=== PATIENT | female | born 1990 | race Caucasian/White ===

== ENCOUNTER 2020-08-05 08:10 | Emergency (ER) | payer OTHER, SELFPAY ==
[2020-08-05 08:23] VITALS: BP 104/52; PULSE 84; RESP 17; TEMP 36.6; BMI 22.1
[2020-08-05] MEDS: ondansetron HCL 4 MG/2 ML VIAL IVPUSH (08:40)
[2020-08-05] MEDS: 0.9 % Sodium Chloride 1,000 ML 999 ML IVCONT (08:41)
[2020-08-05 08:42] LABS: MANUAL DIFF FLAG NO
[2020-08-05 08:44] LABS: Basophils Percent Auto 0.3 % (0-2); Eosinophils Percent Auto 0.5 % (0-4); Hematocrit 41.2 % (37-47); Hemoglobin 14.2 g/dl (12.0-16.0); Imm Gran Abs Auto 0.02 X10*3/uL (0.00-0.03); Imm Gran Pct Auto 0.2 % (0.0-0.4); Lymphocytes Absolute Auto 1.5 X10*3/uL (1.2-4.9); Lymphocytes Percent Auto 17.7 % (20-40); Mean Corpuscular HGB Conc 34.5 g/dl (31.0-35.0); Mean Corpuscular Hemoglobin 31.8 pg (27.0-33.0); Mean Corpuscular Volume 92.4 fL (80-98); Mean Platelet Volume 9.8 fL (9.4-12.3); Monocytes Absolute Auto 0.4 X10*3/uL (0.1-1.2); Monocytes Percent Auto 4.4 % (2-11); Neutrophils Absolute Auto 6.6 X10*3/uL (2.0-8.3); Neutrophils Percent Auto 76.9 % (45-73); Platelet Count 274 X10*3/uL (160-400); Red Blood Count 4.46 X10*6/uL (4.20-5.50); Red Cell Distribution Width 10.8 % (11.0-16.0); White Blood Count 8.6 X10*3/uL (4.8-10.8)
--- NOTE | 2020-08-05 09:10 | ED_ITS ---
HPI - Nausea/Vomiting/Diarrhea General Chief complaint: Abdominal Pain <GRETCHEN Nixon Last Filed: 08/05/20 10:28> Stated complaint: ,vomiting <GRETCHEN Nixon - Last Filed: 08/05/20 10:28> Time Seen by Provider: 08/05/20 08:24 <GRETCHEN Nixon Last Filed: 08/05/20 10:28> Source: patient <GRETCHEN Nixon Last Filed: 08/05/20 10:28> Mode of arrival: ambulatory <GRETCHEN Nixon Last Filed: 08/05/20 10:28> Limitations: no limitations <GRETCHEN Nixon Last Filed: 08/05/20 10:28> History of Present Illness HPI Narrative: 29 y/o female presenting with intractable nausea and vomiting for the last 6 days. She is 6 weeks . She reports similar experience with her 1st in [place]; she states she was in bed and felt sick for 3 whole months. She reports abdominal soreness associated with vomiting. She denies fever, diarrhea, vaginal discharge, vaginal bleeding, lower abdominal cramping. She reports headache behind both eyes and thinks she is dehydrated. <GRETCHEN Nixon Last Filed: 08/05/20 10:28> MD elicited complaint: nausea and vomiting <GRETCHEN Nixon - Last Filed: 08/05/20 10:28> Pertinent past history: other () <GRETCHEN Nixon Last Filed: 08/05/20 10:28> Onset (ago): day(s) (6) <GRETCHEN Nixon - Last Filed: 08/05/20 10:28> Description of vomiting: food contents and watery <GRETCHEN Nixon Last Filed: 08/05/20 10:28> Associated nausea: Yes <GRETCHEN Nixon Last Filed: 08/05/20 10:28> Associated abdominal pain: Yes <GRETCHEN Nixon Last Filed: 08/05/20 10:28> Location of pain: diffuse (only when vomiting, describes it as soreness) <GRETCHEN Nixon Last Filed: 08/05/20 10:28> Pain consistency: intermittent <GRETCHEN Nixon Last Filed: 08/05/20 10:28> Severity: moderate <GRETCHEN Nixon Last Filed: 08/05/20 10:28> Related Data Home medications: Previous Rx's Medication Instructions Recorded ondansetron 4 mg PO Q8H PRN 3 Days #14 tab 08/05/20 <GRETCHEN Nixon Last Filed: 08/05/20 10:28> Allergies/Adverse reactions: Allergies Allergy/AdvReac Type Severity Reaction Status Date / Time No Known Allergies Allergy Verified 08/05/20 08:33 [No Known Allergies*] <GRETCHEN Nixon Last Filed: 08/05/20 10:28> Review of Systems Review of Systems: Constitutional: No Fever, No Chills ENT/Mouth: No sore throat, No Rhinorrhea, No Swallowing Difficulty Eyes: No Eye Pain, No Swelling, No Redness Cardiovascular: No Chest Pain, No SOB, No Orthopnea, No Edema Respiratory: No Cough, No Sputum, No Wheezing, No dyspnea Gastrointestinal: + Nausea, + Vomiting, No Diarrhea, + abdominal Pain, No Hematemesis Genitourinary: No Dysuria, No Urinary Frequency, No Hematuria, No vaginal bleeding Musculoskeletal: No joint pain, No Myalgias Skin: No Skin Lesions, No rash Neuro: + Weakness, No Numbness, No Dizziness, + Headache Psych: + Anxiety/Panic, No Depression Heme/Lymph: No Bruising, No Lymphadenopathy Endocrine: No Polyuria, No Polydipsia <GRETCHEN Nixon Last Filed: 07/15 10:28> Gastrointestinal: Gastrointestinal: Reports nausea <GRETCHEN Nixon Last Filed: 08/05/20 10:28> [facility] Past Medical History Attestation statement: The following information was validated with the patient. <GRETCHEN Nixon Last Filed: 08/05/20 10:28> : 2 <GRETCHEN Nixon Last Filed: 08/05/20 10:28> Para: 1 <GRETCHEN Nixon Last Filed: 08/05/20 10:28> Hx Last Menstrual Period: LMP sometime in May <GRETCHEN Nixon - Last Filed: 08/05/20 10:28> Social History Social History: Social History Advance Directives: No Advance Directives Information Provided: No <GRETCHEN Nixon - Last Filed: 08/05/20 10:28> Physical Exam Vital Signs: Vital Signs: Last Vital Signs Temp 98 F 08/05/20 08:23 Pulse 72 08/05/20 09:55 Resp 16 08/05/20 09:55 BP 107/65 08/05/20 09:55 Pulse Ox 99 08/05/20 09:55 Body Mass Index 22.1 Appearance: Alert. Oriented X3. No acute distress. Eyes: Pupils equal, round and reactive to light. ENT: Pharynx normal. Neck: Normal inspection. Neck supple. CVS: Normal heart rate and rhythm. Pulses normal. Respiratory: No respiratory distress. Breath sounds normal. Abdomen: Soft and nontender. +BS x4 Skin: Skin warm and dry. Normal skin color. Normal skin turgor. No rashes. Extremities: No lower extremity edema. Neuro: Oriented X 3. No motor deficit. No sensory deficit. <GRETCHEN Nixon - Last Filed: 08/05/20 10:28> Vital Signs: Last Vital Signs Temp 98 F 08/05/20 08:23 Pulse 72 08/05/20 09:55 Resp 16 08/05/20 09:55 BP 107/65 08/05/20 09:55 Pulse Ox 99 08/05/20 09:55 Body Mass Index 22.1 <Anthony Galdamez MD - Last Filed: 08/08/20 01:48> Course Course Course Narrative: 29 y/o female who is 6 weeks presenting with intractable N/V. IVF, Zofran ordered for now. Labs pending to assess for dehydration and electrolyte abdnomalities. No vomiting since arrival to the ED. Her abd reveals some mild diffuse discomfort, low suspicion Will reassess. <GRETCHEN Nixon - Last Filed: 08/05/20 10:28> I have reviewed the chart <Anthony Galdamez MD - Last Filed: 08/08/20 01:48> Reevaluation(s) Reevaluation #1: Nausea improved. Patient given PO trial now. <GRETCHEN Nixon - Last Filed: 08/05/20 10:28> Reevaluation #2: Patient tolerating PO well. She feels improved. Will d/c with Rx for anti- emetic. Encouraged to f/u with surgical lead and patient agrees. <GRETCHEN Nixon - Last Filed: 08/05/20 10:28> MDM - Nausea/Vomiting/Diarrhea Lab Data Result diagrams: : 08/05/20 08:37 08/05/20 08:37 <GRETCHEN Nixon - Last Filed: 08/05/20 10:28> Labs: Lab Results 08/05/20 08/05/20 08/05/20 Range/Units 08:37 08:37 09:29 WBC 8.6 (4.8-10.8) X10*3/uL RBC 4.46 (4.20-5.50) X10*6/uL Hgb 14.2 (12.0-16.0) g/dl Hct 41.2 (37-47) % MCV 92.4 (80-98) fL MCH 31.8 (27.0-33.0) pg MCHC 34.5 (31.0-35.0) g/dl RDW 10.8 L (11.0-16.0) % Plt Count 274 (160-400) X10*3/uL MPV 9.8 (9.4-12.3) fL Immature Gran % (Auto) 0.2 (0.0-0.4) % Neut % (Auto) 76.9 H (45-73) % Lymph % (Auto) 17.7 L (20-40) % [place] % (Auto) 4.4 (2-11) % Eos % (Auto) 0.5 (0-4) % Baso % (Auto) 0.3 (0-2) % Lymph # (Auto) 1.5 (1.2-4.9) X10*3/uL [place] # (Auto) 0.4 (0.1-1.2) X10*3/uL Eos # (Auto) 0.0 (0.0-0.4) X10*3/uL Baso # (Auto) 0.0 (0.0-0.2) X10*3/uL Abs Immat Gran (auto) 0.02 (0.00-0.03) X10*3/uL Absolute Neuts (auto) 6.6 (2.0-8.3) X10*3/uL Absolute Nucleated RBC 0.000 (0.0-0.012) X10*3/uL Nucleated RBC % (auto) 0.0 (0.0-0.2) /100WBC Sodium 138 (135-145) mmol/L Potassium 3.7 (3.3-5.1) mmol/l Chloride 103 (96-108) mmol/L Carbon Dioxide 24 (22-29) mmol/L Anion Gap 15 (12-20) BUN 10 (9-16) mg/dL Creatinine 0.70 (0.5-1.4) mg/dL Estim Creat Clear Calc 98.9 Estimated GFR > 60 Random Glucose 81 (60-115) mg/dL Calcium 9.4 (8.4-10.2) mg/dL Total Bilirubin 0.9 (0.0-1.0) mg/dL Direct Bilirubin 0.3 (0.0-0.5) mg/dL AST 15 (5-31) U/L ALT 9 (0-31) U/L Alkaline Phosphatase 57 (39-117) U/L Total Protein 7.5 (6.5-8.0) g/dL Albumin 4.4 (3.5-5.0) g/dL Lipase 11 (8-78) U/L Beta HCG, Quant 19052 mIU/mL Urine Color YELLOW Urine Appearance CLOUDY Urine pH 6.0 (5.0-8.0) Ur Specific [place] >= 1.030 H (1.005-1.025) Urine Protein TRACE (NEG-TRACE) MG/DL Urine Glucose (UA) NEG (NEG) MG/DL Urine Ketones >=80 (NEG) MG/DL Urine Blood NEG (NEG) Urine Nitrite NEG (NEG) Ur Leukocyte Esterase TRACE H (NEG) Urine RBC 0-2 (0) /HPF Urine WBC 1-4 (0-4) /HPF Ur Squamous Epith Cells 3+ /LPF Urine Bacteria 1+ /LPF Urine Mucus 3+ /LPF <GRETCHEN Nixon - Last Filed: 08/05/20 10:28> Lab Results 08/05/20 08/05/20 08/05/20 Range/Units 08:37 08:37 09:29 WBC 8.6 (4.8-10.8) X10*3/uL RBC 4.46 (4.20-5.50) X10*6/uL Hgb 14.2 (12.0-16.0) g/dl Hct 41.2 (37-47) % MCV 92.4 (80-98) fL MCH 31.8 (27.0-33.0) pg MCHC 34.5 (31.0-35.0) g/dl RDW 10.8 L (11.0-16.0) % Plt Count 274 (160-400) X10*3/uL MPV 9.8 (9.4-12.3) fL Immature Gran % (Auto) 0.2 (0.0-0.4) % Neut % (Auto) 76.9 H (45-73) % Lymph % (Auto) 17.7 L (20-40) % [place] % (Auto) 4.4 (2-11) % Eos % (Auto) 0.5 (0-4) % Baso % (Auto) 0.3 (0-2) % Lymph # (Auto) 1.5 (1.2-4.9) X10*3/uL [place] # (Auto) 0.4 (0.1-1.2) X10*3/uL Eos # (Auto) 0.0 (0.0-0.4) X10*3/uL Baso # (Auto) 0.0 (0.0-0.2) X10*3/uL Abs Immat Gran (auto) 0.02 (0.00-0.03) X10*3/uL Absolute Neuts (auto) 6.6 (2.0-8.3) X10*3/uL Absolute Nucleated RBC 0.000 (0.0-0.012) X10*3/uL Nucleated RBC % (auto) 0.0 (0.0-0.2) /100WBC Sodium 138 (135-145) mmol/L Potassium 3.7 (3.3-5.1) mmol/l Chloride 103 (96-108) mmol/L Carbon Dioxide 24 (22-29) mmol/L Anion Gap 15 (12-20) BUN 10 (9-16) mg/dL Creatinine 0.70 (0.5-1.4) mg/dL Estim Creat Clear Calc 98.9 Estimated GFR > 60 Random Glucose 81 (60-115) mg/dL Calcium 9.4 (8.4-10.2) mg/dL Total Bilirubin 0.9 (0.0-1.0) mg/dL Direct Bilirubin 0.3 (0.0-0.5) mg/dL AST 15 (5-31) U/L ALT 9 (0-31) U/L Alkaline Phosphatase 57 (39-117) U/L Total Protein 7.5 (6.5-8.0) g/dL Albumin 4.4 (3.5-5.0) g/dL Lipase 11 (8-78) U/L Beta HCG, Quant 12170 mIU/mL Urine Color YELLOW Urine Appearance CLOUDY Urine pH 6.0 (5.0-8.0) Ur Specific [place] >= 1.030 H (1.005-1.025) Urine Protein TRACE (NEG-TRACE) MG/DL Urine Glucose (UA) NEG (NEG) MG/DL Urine Ketones >=80 (NEG) MG/DL Urine Blood NEG (NEG) Urine Nitrite NEG (NEG) Ur Leukocyte Esterase TRACE H (NEG) Urine RBC 0-2 (0) /HPF Urine WBC 1-4 (0-4) /HPF Ur Squamous Epith Cells 3+ /LPF Urine Bacteria 1+ /LPF Urine Mucus 3+ /LPF <Anthony Galdamez MD - Last Filed: 08/08/20 01:48> Critical Care Time Critical Care Time Critical Care Time: No <GRETCHEN Nixon - Last Filed: 08/05/20 10:28> Discharge Plan Discharge Clinical Impression: Nausea and vomiting during <GRETCHEN Nixon - Last Filed: 08/05/20 10:28> Patient Disposition: Home, Self-Care <GRETCHEN Nixon - Last Filed: 08/05/20 10:28> Instructions: Acute Nausea and Vomiting (ED), First Trimester (ED) <GRETCHEN Nixon - Last Filed: 08/05/20 10:28> Additional Instructions: Follow up with your [facility] this week. Take the prescribed nausea medication as needed. Stick to a bland diet while you are feeling nauseous. If you are unable to tolerate food and drink by mouth due to persistent vomiting come back to the ER for further evaluation. <GRETCHEN Nixon - Last Filed: 08/05/20 10:28> Prescriptions: New ondansetron 4 mg tablet,disintegrating 4 mg PO Q8H PRN (Reason: nausea and vomiting) 3 Days Qty: 14 RF: 0 <GRETCHEN Nixon - Last Filed: 08/05/20 10:28> Interventions: ED Discharge Assessment Last Done: 08/05/20 10:36 <GRETCHEN Nixon - Last Filed: 08/05/20 10:28> Discharge Date/Time: 08/05/20 10:37 <GRETCHEN Nixon - Last Filed: 08/05/20 10:28>
[2020-08-05 09:14] LABS: Alanine Aminotransferase 9 U/L (0-31); Albumin Level 4.4 g/dL (3.5-5.0); Alkaline Phosphatase 57 U/L (39-117); Anion Gap 15 (12-20); Aspartate Amino Transferase 15 U/L (5-31); Bilirubin Direct 0.3 mg/dL (0.0-0.5); Bilirubin Total 0.9 mg/dL (0.0-1.0); Blood Urea Nitrogen 10 mg/dL (9-16); Calcium 9.4 mg/dL (8.4-10.2); Carbon Dioxide 24 mmol/L (22-29); Chloride 103 mmol/L (96-108); Creatinine Clr Calc Pharmacy 98.9; Estimated Glomerular Filt Rate > 60; Glucose Random 81 mg/dL (60-115); Lipase 11 U/L (8-78); Potassium 3.7 mmol/l (3.3-5.1); Sodium 138 mmol/L (135-145); Total Protein 7.5 g/dL (6.5-8.0)
[2020-08-05 09:36] LABS: Glucose Urine UA NEG (NEG); Leukocyte Esterase Urine TRACE (NEG); Nitrite Urine NEG (NEG); Specific Gravity - Urine >= 1.030 (1.005-1.025); Urine Blood NEG (NEG); Urine Ketones >=80 MG/DL (NEG); Urine Protein TRACE MG/DL (NEG-TRACE)
[2020-08-05 09:38] LABS: Appearance Urine CLOUDY; Color Urine YELLOW
[2020-08-05 09:45] LABS: Bacteria Urine 1+ /LPF; Mucus Urine 3+ /LPF; RBC Urine 0-2 /HPF (0); Squamous Epithelial Cell Urine 3+ /LPF
[2020-08-05 09:55] VITALS: BP 107/65; PULSE 72; RESP 16; O2SAT 99
--- NOTE | 2020-08-05 10:02 | PC.NURSE ---
drinking apple juice
== END 2020-08-05 10:37 | disposition home or self-care (01) ==
PROVIDERS: Physician Assistant; Emergency Provider Emergency Medicine; PCP Internal Medicine
DX: O26.91 Pregnancy related conditions, unspecified, first trimester (principal); Z3A.01 Less than 8 weeks gestation of pregnancy
CPT/HCPCS: 36415; 80048; 80076; 81001; 83690; 84702; 85025; 87086; 96361; 96374; 99283; 99284; J2405

== ENCOUNTER → 2020-08-13 11:07 | Outpatient (BNVA) | payer OTHER, SELFPAY | PROVIDERS: Visit Provider Advanced Practice Midwife | DX: O26.891 Other specified pregnancy related conditions, first trimester (principal); R10.9 Unspecified abdominal pain; O21.9 Vomiting of pregnancy, unspecified; Z3A.01 Less than 8 weeks gestation of pregnancy | CPT/HCPCS: 99211 ==

== ENCOUNTER 2020-08-13 13:22 | Emergency (ER) | payer OTHER, SELFPAY ==
--- NOTE | 2020-08-13 12:33 | US_ITS ---
EXAMINATION: ULTRASOUND OB LESS THAN 1 WEEKS FETUS CLINICAL INFORMATION: Threatened . LMP unknown. COMPARISON: 04/09/2020 pelvic ultrasound. TECHNIQUE: Multiple 2-D grayscale and color Doppler transabdominal and transvaginal pelvic ultrasound images were obtained. FINDINGS: A single intrauterine gestation is seen with gestational sac measurement of approximately 3.1 x 2.5 x 2.2 cm. Average crown-rump length measures 0.7 cm consistent with a 6 week 5 day gestation. A yolk sac is seen within normal limits measuring 0.4 cm. A heart rate is seen measuring 122 beats per minute. A crescent-shaped subchorionic hemorrhage is seen anteriorly measuring approximately 2.7 x 0.5 x 1.9 cm. Color Doppler interrogation showed no abnormal vascular flow. The cervix is closed unremarkable. There is no significant free fluid in the cul-de-sac. No adnexal abnormality is identified. The left ovary measures 3.2 x 1.4 x 2.0 . The right ovary measures 3.6 x 2.4 x 2.5 cm. US/US OB <= 14 weeks fetus IMPRESSION: Single viable intrauterine gestation consistent with 6 weeks 5 days via crown-rump length. Subchorionic hemorrhage as detailed above. Monitoring of hCG levels is recommended. A short-term repeat pelvic ultrasound is recommended as clinically indicated.
--- NOTE | 2020-08-13 12:33 | US_ITS ---
EXAMINATION: ULTRASOUND OB LESS THAN 1 WEEKS FETUS CLINICAL INFORMATION: Threatened . LMP unknown. COMPARISON: 04/09/2020 pelvic ultrasound. TECHNIQUE: Multiple 2-D grayscale and color Doppler transabdominal and transvaginal pelvic ultrasound images were obtained. FINDINGS: A single intrauterine gestation is seen with gestational sac measurement of approximately 3.1 x 2.5 x 2.2 cm. Average crown-rump length measures 0.7 cm consistent with a 6 week 5 day gestation. A yolk sac is seen within normal limits measuring 0.4 cm. A heart rate is seen measuring 122 beats per minute. A crescent-shaped subchorionic hemorrhage is seen anteriorly measuring approximately 2.7 x 0.5 x 1.9 cm. Color Doppler interrogation showed no abnormal vascular flow. The cervix is closed unremarkable. There is no significant free fluid in the cul-de-sac. No adnexal abnormality is identified. The left ovary measures 3.2 x 1.4 x 2.0 . The right ovary measures 3.6 x 2.4 x 2.5 cm. US/US OB transvaginal IMPRESSION: Single viable intrauterine gestation consistent with 6 weeks 5 days via crown-rump length. Subchorionic hemorrhage as detailed above. Monitoring of hCG levels is recommended. A short-term repeat pelvic ultrasound is recommended as clinically indicated.
[2020-08-13 14:15] VITALS: BP 106/74; PULSE 70; RESP 14; TEMP 36.4; O2SAT 100; BMI 23.6
[2020-08-13 16:02] LABS: Basophils Percent Auto 0.4 % (0-2); Eosinophils Percent Auto 0.3 % (0-4); Hemoglobin 13.6 g/dl (12.0-16.0); Imm Gran Abs Auto 0.04 X10*3/uL (0.00-0.03); Imm Gran Pct Auto 0.4 % (0.0-0.4); Lymphocytes Absolute Auto 1.8 X10*3/uL (1.2-4.9); Lymphocytes Percent Auto 18.4 % (20-40); MANUAL DIFF FLAG NO; Mean Corpuscular HGB Conc 34.9 g/dl (31.0-35.0); Mean Corpuscular Volume 91.8 fL (80-98); Mean Platelet Volume 10.4 fL (9.4-12.3); Monocytes Absolute Auto 0.5 X10*3/uL (0.1-1.2); Monocytes Percent Auto 5.4 % (2-11); Neutrophils Absolute Auto 7.5 X10*3/uL (2.0-8.3); Neutrophils Percent Auto 75.1 % (45-73); Platelet Count 249 X10*3/uL (160-400); Red Blood Count 4.25 X10*6/uL (4.20-5.50); Red Cell Distribution Width 10.9 % (11.0-16.0)
[2020-08-13] MEDS: Metoclopramide HCl 10 MG/2 ML VIAL IVPUSH (16:32)
[2020-08-13 16:33] LABS: Alanine Aminotransferase 9 U/L (0-31); Albumin Level 3.9 g/dL (3.5-5.0); Alkaline Phosphatase 48 U/L (39-117); Anion Gap 13 (12-20); Aspartate Amino Transferase 19 U/L (5-31); Bilirubin Direct 0.2 mg/dL (0.0-0.5); Bilirubin Total 0.8 mg/dL (0.0-1.0); Blood Urea Nitrogen 8 mg/dL (9-16); Calcium 9.1 mg/dL (8.4-10.2); Carbon Dioxide 24 mmol/L (22-29); Chloride 100 mmol/L (96-108); Creatinine Clr Calc Pharmacy 109.9; Estimated Glomerular Filt Rate > 60; Glucose Random 80 mg/dL (60-115); Sodium 133 mmol/L (135-145); Total Protein 6.9 g/dL (6.5-8.0)
--- NOTE | 2020-08-13 17:25 | ED.NAVMDI ---
HPI - Nausea/Vomiting/Diarrhea General Chief complaint: Nausea/Vomiting/Diarrhea Time Seen by Provider: 08/13/20 15:54 History of Present Illness HPI Narrative: Patient is 7 weeks and is complaining of frequent nausea and vomiting and feels like she can not keep anything down She was seen a week ago for the same thing sent home on Zofran which was very helpful but she ran out of it She went to her respiratory therapy director provider this morning because of some lower abdominal discomfort and an ultra sound was done which confirmed a 6-7 week IUP At this time she has very mild low abdominal pain, no fever no chills no dizziness no weakness no bleeding Related Data Previous Rx's Medication Instructions Recorded ondansetron 4 mg PO Q8H PRN 3 Days #14 tab 08/05/20 famotidine 20 mg PO BID PRN #20 tab 08/13/20 ondansetron HCl [Zofran] 4 mg PO Q6H PRN #10 tab 08/13/20 Allergies Allergy/AdvReac Type Severity Reaction Status Date / Time No Known Allergies Allergy Verified 08/05/20 08:33 [No Known Allergies*] Review of Systems Review of Systems: Positive for nausea vomiting and abdominal pain There is no headache there is no fever no chills no weakness no dizziness no confusion no chest pain no shortness of breath no palpitations there is no skin rash there is no bleeding there is no burning with urination no change in pattern to bowel or bladder no back pain PMFSH Past Medical History PMFSH Narrative: Medical history is positive for 7 weeks last menstrual period 7 weeks ago, and hyperemesis Social History Social History Advance Directives: No Advance Directives Information Provided: No Physical Exam Vital Signs: Vital Signs: Last Vital Signs Temp 97.6 F 08/13/20 14:15 Pulse 70 08/13/20 14:15 Resp 14 08/13/20 14:15 BP 106/74 08/13/20 14:15 Pulse Ox 100 08/13/20 14:15 Body Mass Index 23.6 The patient is comfortable relaxed and cooperative The pharynx is moist mucous membranes are moist, normal pharynx The neck is supple The chest is clear to auscultation bilaterally, no respiratory distress The abdomen is soft and nontender no rebound no guarding The extremities no edema no rash No focal neurologic deficit Course Course Course Narrative: Labs were checked with no acute abnormality Patient was hydrated and given antiemetic and felt much better and tolerated p.o. and was discharged MDM - Nausea/Vomiting/Diarrhea Lab Data Attestation: I reviewed the patient's lab results. Result diagrams: 08/13/20 15:47 08/13/20 15:47 Labs: Lab Results 08/13/20 08/13/20 Range/Units 15:47 15:47 WBC 10.0 (4.8-10.8) X10*3/uL RBC 4.25 (4.20-5.50) X10*6/uL Hgb 13.6 (12.0-16.0) g/dl Hct 39.0 (37-47) % MCV 91.8 (80-98) fL MCH 32.0 (27.0-33.0) pg MCHC 34.9 (31.0-35.0) g/dl RDW 10.9 L (11.0-16.0) % Plt Count 249 (160-400) X10*3/uL MPV 10.4 (9.4-12.3) fL Immature Gran % (Auto) 0.4 (0.0-0.4) % Neut % (Auto) 75.1 H (45-73) % Lymph % (Auto) 18.4 L (20-40) % [place] % (Auto) 5.4 (2-11) % Eos % (Auto) 0.3 (0-4) % Baso % (Auto) 0.4 (0-2) % Lymph # (Auto) 1.8 (1.2-4.9) X10*3/uL [place] # (Auto) 0.5 (0.1-1.2) X10*3/uL Eos # (Auto) 0.0 (0.0-0.4) X10*3/uL Baso # (Auto) 0.0 (0.0-0.2) X10*3/uL Abs Immat Gran (auto) 0.04 H (0.00-0.03) X10*3/uL Absolute Neuts (auto) 7.5 (2.0-8.3) X10*3/uL Absolute Nucleated RBC 0.000 (0.0-0.012) X10*3/uL Nucleated RBC % (auto) 0.0 (0.0-0.2) /100WBC Sodium 133 L (135-145) mmol/L Potassium 4.0 (3.3-5.1) mmol/l Chloride 100 (96-108) mmol/L Carbon Dioxide 24 (22-29) mmol/L Anion Gap 13 (12-20) BUN 8 L (9-16) mg/dL Creatinine 0.63 (0.5-1.4) mg/dL Estim Creat Clear Calc 109.9 Estimated GFR > 60 Random Glucose 80 (60-115) mg/dL Calcium 9.1 (8.4-10.2) mg/dL Total Bilirubin 0.8 (0.0-1.0) mg/dL Direct Bilirubin 0.2 (0.0-0.5) mg/dL AST 19 (5-31) U/L ALT 9 (0-31) U/L Alkaline Phosphatase 48 (39-117) U/L Total Protein 6.9 (6.5-8.0) g/dL Albumin 3.9 (3.5-5.0) g/dL Discharge Plan Discharge Clinical Impression: Hyperemesis gravidarum Patient Disposition: Home, Self-Care Additional Instructions: We wrote for some medication for nausea, return any time for dehydration uncontrolled vomiting abdominal pain any worse condition or any concern, any bleeding Follow with her OBGYN provider Prescriptions: New ondansetron HCl [Zofran] 4 mg tablet 4 mg PO Q6H PRN (Reason: nausea and vomiting) Qty: 10 RF: 0 famotidine 20 mg tablet 20 mg PO BID PRN (Reason: heartburn) Qty: 20 RF: 0 No Action ondansetron 4 mg tablet,disintegrating 4 mg PO Q8H PRN (Reason: nausea and vomiting) 3 Days Qty: 14 RF: 0 Interventions: ED Discharge Assessment Last Done: 08/13/20 17:38 Discharge Date/Time: 08/13/20 17:39
--- NOTE | 2020-08-14 | ECG_ITS ---
Test Reason : CP Blood Pressure : / mmHG Vent. Rate : 074 BPM Atrial Rate : 074 BPM P-R Int : 112 ms QRS Dur : 066 ms QT Int : 364 ms P-R-T Axes : 065 039 034 degrees QTc Int : 404 ms Normal sinus rhythm Normal ECG When compared with ECG of 10-AUG-2019 11:17, No significant change was found Referred By: Saige Castrejon Electronically Signed By:SHERRI TATE MD
== END 2020-08-13 17:39 | disposition home or self-care (01) ==
LOC: HO.ED 13:26 → HO.US 13:55 → HO.ED 13:59
PROVIDERS: Emergency Provider Emergency Medicine; PCP Internal Medicine; Visit Provider Advanced Practice Midwife
DX: O21.0 Mild hyperemesis gravidarum (principal); Z3A.01 Less than 8 weeks gestation of pregnancy
CPT/HCPCS: 36415; 76801; 76817; 80048; 80076; 85025; 93005; 96374; 99283; 99284; J2765

== ENCOUNTER → 2020-09-29 09:12 | Outpatient (BNVA) | payer OTHER, SELFPAY | PROVIDERS: Visit Provider Advanced Practice Midwife | DX: O26.891 Other specified pregnancy related conditions, first trimester (principal); R12 Heartburn; K11.7 Disturbances of salivary secretion; Z79.899 Other long term (current) drug therapy | CPT/HCPCS: 81003 ==

== ENCOUNTER → 2020-10-08 10:27 | Outpatient (BNVA) | payer OTHER, SELFPAY | PROVIDERS: Visit Provider Advanced Practice Midwife | DX: Z76.89 Persons encountering health services in other specified circumstances (principal) | CPT/HCPCS: 99212 ==

== ENCOUNTER 2020-10-13 08:37 | Emergency (ER) | payer OTHER, SELFPAY ==
[2020-10-13 09:08] VITALS: BP 105/69; PULSE 98; RESP 20; TEMP 37.1; O2SAT 99; BMI 23.6
--- NOTE | 2020-10-13 09:31 | ED_ITS ---
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 Patient was seen and treated at [facility] ED last night for similar sx, diagnosed with UTI and constipation, discharged on Keflex, Bisacodly, and Potassium without relief. Admits pain persistent. Denies fever, chills, N/V/D, vaginal bleeding/discharge, dysuria/hemturia <GRETCHEN Lang Last Filed: 10/13/20 16:22> MD elicited complaint: abdominal pain <GRETCHEN Lang Last Filed: 10/13/20 16:22> Related Data Home Medications: Previous Rx's Medication Instructions Recorded ondansetron 4 mg PO Q8H PRN 3 Days #14 tab 08/05/20 ondansetron HCl [Zofran] 4 mg PO Q6H PRN #10 tab 08/13/20 vitamin with calcium 1 tab PO DAILY 30 Days #30 tab 10/03/20 no.72-iron 27 mg-folic acid 1 mg tablet metoclopramide HCl 10 mg tablet 10 mg PO QIDACHS #60 tab 10/07/20 <DO Eufemia Pollock Last Filed: 10/13/20 09:31> Allergies/Adverse Reactions: Allergies Allergy/AdvReac Type Severity Reaction Status Date / Time No Known Allergies Allergy Verified 08/05/20 08:33 [No Known Allergies*] <Saige Castrejon DO - Last Filed: 10/13/20 09:31> Review of Systems Review of Systems Constitutional: No Fever, No Chills Cardiovascular: No Chest Pain, No SOB, No Dyspnea on Exertion Respiratory: No Cough, No Sputum Gastrointestinal: No Nausea, No Vomiting, No Diarrhea, No Constipation, +Abdominal pain Genitourinary: No irregular bleeding, No Dysuria, No Hematuria, + Flank Pain, No vaginal discharge or bleeding Musculoskeletal: No joint pain, No Myalgias, No Joint Swelling Skin: No Skin Lesions, No rash <GRETCHEN Lang Last Filed: 10/13/20 16:22> Yes all other systems are reviewed and are negative <GRETCHEN Lang Last Filed: 10/13/20 16:22> Physical Exam Vital Signs: Vital Signs: Last Vital Signs Temp 98.2 F 10/13/20 12:06 Pulse 82 10/13/20 12:06 Resp 16 10/13/20 14:00 BP 93/56 L 10/13/20 12:06 Pulse Ox 98 10/13/20 12:06 Body Mass Index 23.6 <Saige Castrejon DO - Last Filed: 10/13/20 09:31> Vital Signs: Last Vital Signs Temp 98.2 F 10/13/20 12:06 Pulse 82 10/13/20 12:06 Resp 16 10/13/20 14:00 BP 93/56 L 10/13/20 12:06 Pulse Ox 98 10/13/20 12:06 Body Mass Index 23.6 <GRETCHEN Lang - Last Filed: 10/13/20 16:22> Const: General: cooperative and healthy appearing <GRETCHEN Lang Last Filed: 10/13/20 16:22> Orientation/consciousness: patient oriented x3 <GRETCHEN Lang Last Filed: 10/13/20 16:22> Limitations: no limitations <GRETCHEN Lang Last Filed: 10/13/20 16:22> HENMT: Head: Yes normal to inspection <GRETCHEN Lang Last Filed: 10/13/20 16:22> Ears: hearing grossly normal bilaterally <Kaelyn Abad, PA - Last Filed: 10/13/20 16:22> General nose exam: Normal external nose present <Kaelyn Abad PA - Last F iled: 10/13/20 16:22> Face and sinus: Yes normal facial exam <Kaelyn Abad PA - Last Filed: 10/13/20 16:22> Eyes: General: appearance normal, both eyes and all related structures <Kaelyn Pollo, PA - Last Filed: 10/13/20 16:22> EOM: EOMs intact bilaterally <Kaelyn Pollo, PA - Last Filed: 10/13/20 16:22> Neck: Neck: Yes normal visual inspection <Kaelyn Abad PA - Last Filed: 10/13/20 16:22> Resp: Effort & Inspection: normal respiratory effort <Kaelyn Abad PA - Last Filed: 10/13/20 16:22> Cardio: Rate: regular rate <Kaelyn Abad PA - Last Filed: 10/13/20 16:22> GI: Inspection: Yes normal to inspection <Kaelyn Abad, PA - Last Filed: 10/13/20 16:22> Palpation (GI): Soft to palpation, Tenderness to palpation present (GI) in the RUQ, no guarding and not rigid <Kaelyn Abad, PA - Last Filed: 10/13/20 16:22> : General: Yes CVA tenderness on the right <Kaelyn Abad PA - Last Filed: 10/13/20 16:22> Skin: Rashes: no rashes <Kaelyn Abad PA - Last Filed: 10/13/20 16:22> Wounds: no wounds <Kaelyn Pollo, PA - Last Filed: 10/13/20 16:22> Neuro: General: patient oriented x3 <Kaelyn Abad PA - Last Filed: 10/13/20 16:22> Gait exam (Neuro): Normal gait present <Kaelyn Abad PA - Last Filed: 10/13/20 16:22> Extrem: General: Yes normal to inspection <Kaelyn Abad PA - Last Filed: 10/13/20 16:22> Course Course Course Narrative: * 1144-- ultrasound showing cholelithiasis without wall thickening or right upper quadrant tenderness. Trace free fluid around the right kidney. > on re-evaluation patient still reports severe pain, abdomen is soft with RUQ/right flank and now right lower quadrant tenderness > will obtain MRI to further evaluate. Lab still pending * 1439- mild leukocytosis of 14.4, H&H slightly lower than baseline as expected with . Beta quant 53,909. UA with RBCs and leuk esterase. Patient already on Keflex for UTI treatment. MR abdomen wo con IMPRESSION: No gallstones appreciated by MRI. The gallbladder is normal-appearing without evidence of cholecystitis. No intra or extrahepatic biliary duct dilatation or common bile duct stone seen. Mild right hydronephrosis and perinephric stranding. The right kidney is normal in signal. This may be secondary to . Normal-appearing appendix >> lactic and blood cultures ordered. Will give patient 1st dose of IV ceftriaxone in the ED for pyelonephritis. At this time does not meet any sepsis criteria. <GRETCHEN Lang - Last Filed: 10/13/20 16:22> MDM - Abdominal Pain MDM Narrative Medical decision making narrative: 29-year-old female at 15 weeks gestation presenting to the ED complaining of right-sided abdominal pain since yesterday. Patient was seen and treated at [facility] ED last night for similar sx, diagnosed with UTI and constipation, discharged on Keflex, Bisacodly, and Potassium without relief. On exam VSS, NAD, well appearing, abd soft +ttp RUQ/R flank. No rebound or guarding. Concern for cholecystitis/cholelithiasis or pancreatitis vs renal stone or pyelo. Lower concern for ectopic/ovarian cyst/torsion, appendicitis, or diverticulitis. Per patient had pelvic ultrasound yesterday at [facility], records requested Plan: Labs, UA, limited abdomen ultrasound <GRETCHEN Lang - Last Filed: 10/13/20 16:22> Lab Data Result diagrams: : 10/13/20 11:29 10/13/20 11:29 <Saige Castrejon DO - Last Filed: 10/13/20 09:31> Labs: Lab Results 10/13/20 10/13/20 10/13/20 Range/Units 09:22 11:29 11:29 WBC 14.4 H (4.8-10.8) X10*3/uL RBC 3.48 L (4.20-5.50) X10*6/uL Hgb 11.2 L (12.0-16.0) g/dl Hct 32.1 L (37-47) % MCV 92.2 (80-98) fL MCH 32.2 (27.0-33.0) pg MCHC 34.9 (31.0-35.0) g/dl RDW 12.5 (11.0-16.0) % Plt Count 218 (160-400) X10*3/uL MPV 9.7 (9.4-12.3) fL Immature Gran % (Auto) 0.4 (0.0-0.4) % Neut % (Auto) 93.7 H (45-73) % Lymph % (Auto) 3.9 L (20-40) % Crisp % (Auto) 1.9 L (2-11) % Eos % (Auto) 0.0 (0-4) % Baso % (Auto) 0.1 (0-2) % Lymph # (Auto) 0.6 L (1.2-4.9) X10*3/uL Crisp # (Auto) 0.3 (0.1-1.2) X10*3/uL Eos # (Auto) 0.0 (0.0-0.4) X10*3/uL Baso # (Auto) 0.0 (0.0-0.2) X10*3/uL Abs Immat Gran (auto) 0.06 H (0.00-0.03) X10*3/uL Absolute Neuts (auto) 13.5 H (2.0-8.3) X10*3/uL Absolute Nucleated RBC 0.000 (0.0-0.012) X10*3/uL Nucleated RBC % (auto) 0.0 (0.0-0.2) /100WBC Smear Tech's Comments VERIFIED Hold Blue Top SEE NOTE Sodium (135-145) mmol/L Potassium (3.3-5.1) mmol/l Chloride (96-108) mmol/L Carbon Dioxide (22-29) mmol/L Anion Gap (12-20) BUN (9-16) mg/dL Creatinine (0.5-1.4) mg/dL Estim Creat Clear Calc Estimated GFR Random Glucose (60-115) mg/dL Calcium (8.4-10.2) mg/dL Magnesium (1.6-2.6) mg/dL Total Bilirubin (0.0-1.0) mg/dL Direct Bilirubin (0.0-0.5) mg/dL AST (5-31) U/L ALT (0-31) U/L Alkaline Phosphatase (39-117) U/L Total Protein (6.5-8.0) g/dL Albumin (3.5-5.0) g/dL Lipase (8-78) U/L Beta HCG, Quant mIU/mL Urine Color YELLOW Urine Appearance HAZY Urine pH 6.0 (5.0-8.0) Ur Specific [place] >= 1.030 H (1.005-1.025) Urine Protein NEG (NEG-TRACE) MG/DL Urine Glucose (UA) NEG (NEG) MG/DL Urine Ketones 15 (NEG) MG/DL Urine Blood 1+ H (NEG) Urine Nitrite NEG (NEG) Ur Leukocyte Esterase TRACE H (NEG) Urine RBC 10-14 H (0) /HPF Urine WBC 1-4 (0-4) /HPF Ur Squamous Epith Cells 3+ /LPF Urine Bacteria 1+ /LPF Urine Test POSITIVE H (NEGATIVE) 10/13/20 10/13/20 Range/Units 11:29 12:05 WBC (4.8-10.8) X10*3/uL RBC (4.20-5.50) X10*6/uL Hgb (12.0-16.0) g/dl Hct (37-47) % MCV (80-98) fL MCH (27.0-33.0) pg MCHC (31.0-35.0) g/dl RDW (11.0-16.0) % Plt Count (160-400) X10*3/uL MPV (9.4-12.3) fL Immature Gran % (Auto) (0.0-0.4) % Neut % (Auto) (45-73) % Lymph % (Auto) (20-40) % Crisp % (Auto) (2-11) % Eos % (Auto) (0-4) % Baso % (Auto) (0-2) % Lymph # (Auto) (1.2-4.9) X10*3/uL Crisp # (Auto) (0.1-1.2) X10*3/uL Eos # (Auto) (0.0-0.4) X10*3/uL Baso # (Auto) (0.0-0.2) X10*3/uL Abs Immat Gran (auto) (0.00-0.03) X10*3/uL Absolute Neuts (auto) (2.0-8.3) X10*3/uL Absolute Nucleated RBC (0.0-0.012) X10*3/uL Nucleated RBC % (auto) (0.0-0.2) /100WBC Smear Tech's Comments Hold Blue Top Sodium 135 (135-145) mmol/L Potassium 4.5 (3.3-5.1) mmol/l Chloride 105 (96-108) mmol/L Carbon Dioxide 21 L (22-29) mmol/L Anion Gap 14 (12-20) BUN 12 (9-16) mg/dL Creatinine 0.61 (0.5-1.4) mg/dL Estim Creat Clear Calc 108.5 Estimated GFR > 60 Random Glucose 103 (60-115) mg/dL Calcium 9.1 (8.4-10.2) mg/dL Magnesium 1.7 (1.6-2.6) mg/dL Total Bilirubin 0.4 (0.0-1.0) mg/dL Direct Bilirubin < 0.2 (0.0-0.5) mg/dL AST 13 (5-31) U/L ALT 7 (0-31) U/L Alkaline Phosphatase 36 L D (39-117) U/L Total Protein 6.6 (6.5-8.0) g/dL Albumin 3.7 (3.5-5.0) g/dL Lipase 13 (8-78) U/L Beta HCG, Quant 77717 mIU/mL Urine Color Cancelled Urine Appearance Cancelled Urine pH Cancelled (5.0-8.0) Ur Specific [place] Cancelled (1.005-1.025) Urine Protein Cancelled (NEG-TRACE) MG/DL Urine Glucose (UA) Cancelled (NEG) MG/DL Urine Ketones Cancelled (NEG) MG/DL Urine Blood Cancelled (NEG) Urine Nitrite Cancelled (NEG) Ur Leukocyte Esterase Cancelled (NEG) Urine RBC (0) /HPF Urine WBC (0-4) /HPF Ur Squamous Epith Cells /LPF Urine Bacteria /LPF Urine Test (NEGATIVE) <Saige Castrejon DO - Last Filed: 10/13/20 09:31> Lab Results 10/13/20 10/13/20 10/13/20 Range/Units 09:22 11:29 11:29 WBC 14.4 H (4.8-10.8) X10*3/uL RBC 3.48 L (4.20-5.50) X10*6/uL Hgb 11.2 L (12.0-16.0) g/dl Hct 32.1 L (37-47) % MCV 92.2 (80-98) fL MCH 32.2 (27.0-33.0) pg MCHC 34.9 (31.0-35.0) g/dl RDW 12.5 (11.0-16.0) % Plt Count 218 (160-400) X10*3/uL MPV 9.7 (9.4-12.3) fL Immature Gran % (Auto) 0.4 (0.0-0.4) % Neut % (Auto) 93.7 H (45-73) % Lymph % (Auto) 3.9 L (20-40) % Crisp % (Auto) 1.9 L (2-11) % Eos % (Auto) 0.0 (0-4) % Baso % (Auto) 0.1 (0-2) % Lymph # (Auto) 0.6 L (1.2-4.9) X10*3/uL Crisp # (Auto) 0.3 (0.1-1.2) X10*3/uL Eos # (Auto) 0.0 (0.0-0.4) X10*3/uL Baso # (Auto) 0.0 (0.0-0.2) X10*3/uL Abs Immat Gran (auto) 0.06 H (0.00-0.03) X10*3/uL Absolute Neuts (auto) 13.5 H (2.0-8.3) X10*3/uL Absolute Nucleated RBC 0.000 (0.0-0.012) X10*3/uL Nucleated RBC % (auto) 0.0 (0.0-0.2) /100WBC Smear Tech's Comments VERIFIED Hold Blue Top SEE NOTE Sodium (135-145) mmol/L Potassium (3.3-5.1) mmol/l Chloride (96-108) mmol/L Carbon Dioxide (22-29) mmol/L Anion Gap (12-20) BUN (9-16) mg/dL Creatinine (0.5-1.4) mg/dL Estim Creat Clear Calc Estimated GFR Random Glucose (60-115) mg/dL Calcium (8.4-10.2) mg/dL Magnesium (1.6-2.6) mg/dL Total Bilirubin (0.0-1.0) mg/dL Direct Bilirubin (0.0-0.5) mg/dL AST (5-31) U/L ALT (0-31) U/L Alkaline Phosphatase (39-117) U/L Total Protein (6.5-8.0) g/dL Albumin (3.5-5.0) g/dL Lipase (8-78) U/L Beta HCG, Quant mIU/mL Urine Color YELLOW Urine Appearance HAZY Urine pH 6.0 (5.0-8.0) Ur Specific [place] >= 1.030 H (1.005-1.025) Urine Protein NEG (NEG-TRACE) MG/DL Urine Glucose (UA) NEG (NEG) MG/DL Urine Ketones 15 (NEG) MG/DL Urine Blood 1+ H (NEG) Urine Nitrite NEG (NEG) Ur Leukocyte Esterase TRACE H (NEG) Urine RBC 10-14 H (0) /HPF Urine WBC 1-4 (0-4) /HPF Ur Squamous Epith Cells 3+ /LPF Urine Bacteria 1+ /LPF Urine Test POSITIVE H (NEGATIVE) 10/13/20 10/13/20 Range/Units 11:29 12:05 WBC (4.8-10.8) X10*3/uL RBC (4.20-5.50) X10*6/uL Hgb (12.0-16.0) g/dl Hct (37-47) % MCV (80-98) fL MCH (27.0-33.0) pg MCHC (31.0-35.0) g/dl RDW (11.0-16.0) % Plt Count (160-400) X10*3/uL MPV (9.4-12.3) fL Immature Gran % (Auto) (0.0-0.4) % Neut % (Auto) (45-73) % Lymph % (Auto) (20-40) % Crisp % (Auto) (2-11) % Eos % (Auto) (0-4) % Baso % (Auto) (0-2) % Lymph # (Auto) (1.2-4.9) X10*3/uL Crisp # (Auto) (0.1-1.2) X10*3/uL Eos # (Auto) (0.0-0.4) X10*3/uL Baso # (Auto) (0.0-0.2) X10*3/uL Abs Immat Gran (auto) (0.00-0.03) X10*3/uL Absolute Neuts (auto) (2.0-8.3) X10*3/uL Absolute Nucleated RBC (0.0-0.012) X10*3/uL Nucleated RBC % (auto) (0.0-0.2) /100WBC Smear Tech's Comments Hold Blue Top Sodium 135 (135-145) mmol/L Potassium 4.5 (3.3-5.1) mmol/l Chloride 105 (96-108) mmol/L Carbon Dioxide 21 L (22-29) mmol/L Anion Gap 14 (12-20) BUN 12 (9-16) mg/dL Creatinine 0.61 (0.5-1.4) mg/dL Estim Creat Clear Calc 108.5 Estimated GFR > 60 Random Glucose 103 (60-115) mg/dL Calcium 9.1 (8.4-10.2) mg/dL Magnesium 1.7 (1.6-2.6) mg/dL Total Bilirubin 0.4 (0.0-1.0) mg/dL Direct Bilirubin < 0.2 (0.0-0.5) mg/dL AST 13 (5-31) U/L ALT 7 (0-31) U/L Alkaline Phosphatase 36 L D (39-117) U/L Total Protein 6.6 (6.5-8.0) g/dL Albumin 3.7 (3.5-5.0) g/dL Lipase 13 (8-78) U/L Beta HCG, Quant 45288 mIU/mL Urine Color Cancelled Urine Appearance Cancelled Urine pH Cancelled (5.0-8.0) Ur Specific [place] Cancelled (1.005-1.025) Urine Protein Cancelled (NEG-TRACE) MG/DL Urine Glucose (UA) Cancelled (NEG) MG/DL Urine Ketones Cancelled (NEG) MG/DL Urine Blood Cancelled (NEG) Urine Nitrite Cancelled (NEG) Ur Leukocyte Esterase Cancelled (NEG) Urine RBC (0) /HPF Urine WBC (0-4) /HPF Ur Squamous Epith Cells /LPF Urine Bacteria /LPF Urine Test (NEGATIVE) <GRETCHEN Lang - Last Filed: 10/13/20 16:22> Discharge Plan Discharge Clinical Impression: Pyelonephritis affecting <Saige Castrejon DO - Last Filed: 10/13/20 09:31> Prescriptions: No Action Vitamin Plus Low Iron 27 mg iron- 1 mg tablet 1 tab PO DAILY 30 Days Qty: 30 RF: 11 metoclopramide HCl [Reglan] 10 mg tablet 10 mg PO QIDACHS Qty: 60 RF: 0 ondansetron 4 mg tablet,disintegrating 4 mg PO Q8H PRN (Reason: nausea and vomiting) 3 Days Qty: 14 RF: 0 ondansetron HCl [Zofran] 4 mg tablet 4 mg PO Q6H PRN (Reason: nausea and vomiting) Qty: 10 RF: 0 <Saige Castrejon DO - Last Filed: 10/13/20 09:31> Referrals: Sonia Ahumada MD [Primary Care Provider] - 2 days ([facility]) <Saige Castrejon DO - Last Filed: 10/13/20 09:31> [facility] Past Medical History Attestation statement: The following information was validated with the patient. <GRETCHEN Lang - Last Filed: 10/13/20 16:22> Surgical History: Surgical History H/O abdominoplasty <Saige Castrejon DO - Last Filed: 10/13/20 09:31> Family History Family History: Family History (Updated 10/08/20 @ 10:59 by Kate Pederson RN) Father Hx of malignant neoplasm of prostate Hx of diabetes mellitus Mother Hx of primary hypertension Hx of seizure disorder Maternal Grandmother Hx of primary hypertension Maternal Grandfather Hx of kidney disease <Saige Castrejon DO - Last Filed: 10/13/20 09:31> Social History Social History: Social History (Updated 10/08/20 @ 11:03 by Kate Pederson RN) Household Members: Spouse and Family Alcohol intake: never Smoking Status: Never smoker Substance Use Type: Marijuana service: No Current occupational status: employed and unemployed 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
[2020-10-13 09:38] LABS: Glucose Urine UA NEG (NEG); Leukocyte Esterase Urine TRACE (NEG); Nitrite Urine NEG (NEG); Specific Gravity - Urine >= 1.030 (1.005-1.025); Urine Blood 1+ (NEG); Urine Ketones 15 MG/DL (NEG); Urine Protein NEG (NEG-TRACE)
[2020-10-13 09:40] LABS: Appearance Urine HAZY; Color Urine YELLOW
[2020-10-13 09:41] LABS: UPreg QC Valid YES; Urine Pregnancy POSITIVE (NEGATIVE)
[2020-10-13 09:52] LABS: Bacteria Urine 1+ /LPF; Squamous Epithelial Cell Urine 3+ /LPF
--- NOTE | 2020-10-13 10:03 | US_ITS ---
EXAMINATION: US ABDOMEN LIMITED CLINICAL INFORMATION: Right upper quadrant/right flank pain.. COMPARISON: CT abdomen and pelvis 03/19/2019 TECHNIQUE: Real-time imaging of the right upper quadrant abdominal viscera. FINDINGS: PANCREAS: Normal. LIVER: Normal. The liver is normal in size. The liver contour is normal. Parenchymal echogenicity is normal. No focal hepatic lesion. There is no intrahepatic biliary duct dilatation seen. GALLBLADDER: There are multiple echogenic mobile 6 stones without wall thickening. No pericholecystic fluid collection or tenderness in right upper quadrant by ultrasound probe. COMMON BILE DUCT: Normal in caliber measuring 0.11 cm in diameter. RIGHT KIDNEY: There is a trace free fluid around the right kidney.. No hydronephrosis. No renal calculi or focal parenchymal lesions. The kidney measures 11.6 cm in maximum dimension. FREE FLUID: None. US/US abdomen limited IMPRESSION: Cholelithiasis without wall thickening or tenderness in the right upper quadrant. There is trace free fluid around the right kidney. Pancreas, liver and CBD appears unremarkable.
--- NOTE | 2020-10-13 11:21 | MR_ITS ---
EXAMINATION: MR ABDOMEN WITHOUT CONTRAST CLINICAL INFORMATION: Right-sided abdominal/right upper quadrant and flank pain. Evaluate for stone versus pyelonephritis. COMPARISON: Previous abdominal ultrasound from earlier the same day TECHNIQUE: MR abdomen is performed without gadolinium contrast. FINDINGS: LUNG BASES: The visualized lung bases are unremarkable. LIVER, GALLBLADDER, AND BILIARY TREE: The liver is normal in size, smooth in contour, and normal in signal. No focal hepatic lesion or biliary ductal dilatation is present. The gallbladder is unremarkable. No gallstones are appreciated by MRI. No evidence of gallbladder wall thickening, or pericholecystic inflammatory changes. No common bile duct stone is seen. PANCREAS: Unremarkable. SPLEEN: Unremarkable. ADRENAL GLANDS: Unremarkable. KIDNEYS AND URETERS: The kidneys are normal in size and shape. There is mild right hydronephrosis. The right kidney is normal in signal. There is mild right perinephric stranding. The left kidney is unremarkable. GASTROINTESTINAL TRACT: No bowel obstruction. The appendix is normal. No ascites or fluid collection. ABDOMINAL WALL: No significant hernia is appreciated. LYMPH NODES: No lymphadenopathy. VASCULAR: Unremarkable. There is a gravid uterus. No adnexal mass is seen. There is no fluid in the pelvis. OSSEOUS STRUCTURES: Marrow signal normal. MR/MR abdomen wo con IMPRESSION: No gallstones appreciated by MRI. The gallbladder is normal-appearing without evidence of cholecystitis. No intra or extrahepatic biliary duct dilatation or common bile duct stone seen. Mild right hydronephrosis and perinephric stranding. The right kidney is normal in signal. This may be secondary to . Normal-appearing appendix.
[2020-10-13 11:37] LABS: Basophils Percent Auto 0.1 % (0-2); Hematocrit 32.1 % (37-47); Hemoglobin 11.2 g/dl (12.0-16.0); Imm Gran Abs Auto 0.06 X10*3/uL (0.00-0.03); Imm Gran Pct Auto 0.4 % (0.0-0.4); Lymphocytes Absolute Auto 0.6 X10*3/uL (1.2-4.9); Lymphocytes Percent Auto 3.9 % (20-40); MANUAL DIFF FLAG SCAN; Mean Corpuscular HGB Conc 34.9 g/dl (31.0-35.0); Mean Corpuscular Hemoglobin 32.2 pg (27.0-33.0); Mean Corpuscular Volume 92.2 fL (80-98); Mean Platelet Volume 9.7 fL (9.4-12.3); Monocytes Absolute Auto 0.3 X10*3/uL (0.1-1.2); Monocytes Percent Auto 1.9 % (2-11); Neutrophils Absolute Auto 13.5 X10*3/uL (2.0-8.3); Neutrophils Percent Auto 93.7 % (45-73); Platelet Count 218 X10*3/uL (160-400); Red Blood Count 3.48 X10*6/uL (4.20-5.50); Red Cell Distribution Width 12.5 % (11.0-16.0); SCAN SMEAR FLAG 1; White Blood Count 14.4 X10*3/uL (4.8-10.8)
[2020-10-13 12:06] VITALS: BP 93/56; PULSE 82; RESP 16; TEMP 36.8; O2SAT 98
[2020-10-13 12:06] LABS: Alanine Aminotransferase 7 U/L (0-31); Albumin Level 3.7 g/dL (3.5-5.0); Alkaline Phosphatase 36 U/L (39-117); Anion Gap 14 (12-20); Aspartate Amino Transferase 13 U/L (5-31); Bilirubin Direct < 0.2 mg/dL (0.0-0.5); Bilirubin Total 0.4 mg/dL (0.0-1.0); Blood Urea Nitrogen 12 mg/dL (9-16); Calcium 9.1 mg/dL (8.4-10.2); Carbon Dioxide 21 mmol/L (22-29); Chloride 105 mmol/L (96-108); Creatinine Clr Calc Pharmacy 108.5; Estimated Glomerular Filt Rate > 60; Glucose Random 103 mg/dL (60-115); Lipase 13 U/L (8-78); Magnesium 1.7 mg/dL (1.6-2.6); Potassium 4.5 mmol/l (3.3-5.1); Sodium 135 mmol/L (135-145); Total Protein 6.6 g/dL (6.5-8.0)
--- NOTE | 2020-10-13 12:18 | PC.NURSE ---
mri screening form was completed with inspector golf ball. was faxed. pt oob to bathroom.
[2020-10-13 12:22] LABS: SLIDE REVIEW VERIFIED
[2020-10-13 12:31] LABS: HCG Quantitative 53909 mIU/mL
--- NOTE | 2020-10-13 13:28 | PC.NURSE ---
pt awaiting mri, sleeping resp even and unlabored at this time.
[2020-10-13 14:00] VITALS: RESP 16
--- NOTE | 2020-10-13 15:28 | PC.NURSE ---
pt remains in mri
--- NOTE | 2020-10-13 16:12 | PC.NURSE ---
return from mri
[2020-10-13] MEDS: cefTRIAXone sodium 1 GM in 0.9 % Sodium Chloride 50 ML IV (16:37)
[2020-10-13 16:40] VITALS: RESP 16
[2020-10-13 16:56] LABS: Lactic Acid 1.1 mmol/L (0.5-2.0)
== END 2020-10-13 17:31 | disposition home or self-care (01) ==
PROVIDERS: Physician Assistant; Emergency Provider Emergency Medicine; PCP Internal Medicine
DX: O26.832 Pregnancy related renal disease, second trimester (principal); N12 Tubulo-interstitial nephritis, not specified as acute or chronic; O99.612 Diseases of the digestive system complicating pregnancy, second trimester; Z3A.15 15 weeks gestation of pregnancy
CPT/HCPCS: 36415; 74181; 76705; 80048; 80076; 81001; 81025; 83605; 83690; 83735; 84702; 85025; 87040; 87086; 96365; 99284; J0696

== ENCOUNTER 2020-10-16 14:59 | Outpatient (REF) | payer OTHER, SELFPAY ==
[2020-10-17 09:41] LABS: BV Int Neg Control Negative (Negative); BV Int Pos Control Positive (Positive)
[2020-10-18 13:26] LABS: C. trachomatis RNA TMA NOT DETECTED (NOT DETECTED); N. gonorrhoeae RNA TMA NOT DETECTED (NOT DETECTED)
== END 2020-10-16 15:00 | disposition home or self-care (01) ==
LOC: HO.LAB 14:59
PROVIDERS: PCP Internal Medicine; Visit Provider Advanced Practice Midwife
DX: O26.891 Other specified pregnancy related conditions, first trimester (principal); R12 Heartburn; K11.7 Disturbances of salivary secretion; O99.891 Other specified diseases and conditions complicating pregnancy; N13.30 Unspecified hydronephrosis; Z3A.15 15 weeks gestation of pregnancy
CPT/HCPCS: 36415; 87480; 87491; 87510; 87591; 87624; 87660; 88141; 88142; 99212

== ENCOUNTER 2020-10-31 11:49 | Outpatient (REF) | payer OTHER, SELFPAY ==
--- NOTE | ~2020-10-31 | US_ITS ---
EXAMINATION: US OBSTETRICAL CLINICAL INFORMATION: 30-year-old at 18.0 weeks of gestation Screening for malformation COMPARISON: 08/13/2020 TECHNIQUE: Real-time transabdominal ultrasound was performed using C1-5 megahertz transducer. FINDINGS: A single, active, fetus is seen in vertex presentation. The placenta is posterior without previa, and the amniotic fluid volume is wnl. MEASUREMENTS: 1. Biparietal Diameter: 4.1 cm; 18.3 wks 2. Occipital Frontal Diameter: 5.5 cm 3. Head Circumference: 15.4 cm; 18.3 wks 4. Abdominal Circumference: 14.3 cm; 19.5 wks 5. Femur Length: 3.1 cm; 19.5 wks 6. Humerus Length: 2.9 cm; 19.3 wks 7. Tibia Length: 2.6 cm; 19.2 wks 8. Ulna Length: 2.6 cm; 19.3 wks 9. Lateral ventricle: 0.5 cm 10. Cerebellum: 1.8 cm; 18.6 wks 11. Cisterna Magna: 0.3 cm 12. Nuchal Fold: 3.7 mm 13. Heart Rate: 147 beats per minute Rt ovary: normal Lt ovary: normal Cervical length 3.8 cm on T/A. GESTATIONAL AGE: 1. Established GA: 18.0 wks 2. GA from [facility]: 19.1 wks ESTIMATED DATE OF DELIVERY: 1. Established GRAEME: 04/03/2021 2. GRAEME from [facility]: 03/26/2021 ANATOMY: The visualized anatomy includes but not limited to: 1. Cranium: Normal 2. Intracranial anatomy: cavum septum pellucidi, lateral ventricles, choroid plexus, cerebellum, posterior fossa, third and fourth ventricles. 3. face: orbits, lip/palate, profile, nasal bone 4. Heart: four-chamber view of the heart, ventricular septum, foramen ovale, pulmonary vein, left and right outflow tracts, three-vessel view, 3 vessel trachea view, aortic and ductal arches, situs.. 5. Diaphragm: Normal 6. Abdominal wall: Normal 7. Cord Insertion: Normal 8. Spine: Cervical, thoracic, lumbar, sacral. 9. Stomach: Normal size and shape 10. Right Kidney: Normal 11. Left Kidney: Normal 12. 3 vessel cord: Normal 13. Upper extremity: Open hands, fifth digit. 14. Lower extremity: Tibia, fibula, bilateral feet. 15. Bladder: Normal 16. Genitalia: Male, patient aware US/US OB /maternal detail IMPRESSION: 1. Single, living, intrauterine with appropriate biometry. 2. Normal survey DISCUSSION: I reviewed today's ultrasound findings. We discussed the limitations of ultrasound in diagnosing aneuploidy and other congenital abnormalities. I reviewed the differences between screening test and diagnostic test. Amniocentesis was discussed and declined. She was informed that the baseline incidence of congenital abnormalities is approximately 3-5%. Not all these conditions are diagnosable in utero. RECOMMENDATIONS: 1. No additional ultrasound exam scheduled. Thank you for allowing me to participate in her care. Visiting time 20 minutes. Majority of this visit was spent reviewing and discussing her care.
== END 2020-10-31 11:50 | disposition home or self-care (01) ==
LOC: HO.US 11:49
PROVIDERS: Visit Provider Advanced Practice Midwife
DX: Z36.3 Encounter for antenatal screening for malformations (principal)
CPT/HCPCS: 76811

== ENCOUNTER → 2020-11-13 15:07 | Outpatient (BNVA) | payer OTHER, SELFPAY | PROVIDERS: Visit Provider Advanced Practice Midwife | DX: O99.340 Other mental disorders complicating pregnancy, unspecified trimester (principal); F32.9 Major depressive disorder, single episode, unspecified; K11.7 Disturbances of salivary secretion | CPT/HCPCS: 99212 ==

== ENCOUNTER 2020-12-11 10:27 | Outpatient (REF) | payer OTHER, SELFPAY ==
[2020-12-11 11:31] LABS: MANUAL DIFF FLAG NO
[2020-12-11 11:43] LABS: Basophils Percent Auto 0.3 % (0-2); Eosinophils Percent Auto 0.4 % (0-4); Hematocrit 31.5 % (37-47); Hemoglobin 10.5 g/dl (12.0-16.0); Imm Gran Abs Auto 0.03 X10*3/uL (0.00-0.03); Imm Gran Pct Auto 0.4 % (0.0-0.4); Lymphocytes Absolute Auto 1.1 X10*3/uL (1.2-4.9); Mean Corpuscular HGB Conc 33.3 g/dl (31.0-35.0); Mean Corpuscular Hemoglobin 31.4 pg (27.0-33.0); Mean Corpuscular Volume 94.3 fL (80-98); Mean Platelet Volume 9.6 fL (9.4-12.3); Monocytes Absolute Auto 0.4 X10*3/uL (0.1-1.2); Monocytes Percent Auto 4.7 % (2-11); Neutrophils Absolute Auto 6.3 X10*3/uL (2.0-8.3); Neutrophils Percent Auto 80.2 % (45-73); Platelet Count 214 X10*3/uL (160-400); Red Blood Count 3.34 X10*6/uL (4.20-5.50); Red Cell Distribution Width 11.9 % (11.0-16.0); White Blood Count 7.9 X10*3/uL (4.8-10.8)
[2020-12-11 12:44] LABS: HCG Quantitative 24150 mIU/mL
[2020-12-11 14:30] LABS: Amphetamine Screen Urine Not Detected (Not Detect); Barbiturates, Urine Not Detected (Not Detect); Benzodiazepines Screen Urine Not Detected (Not Detect); Cannabinoid Screen Urine Not Detected (Not Detect); Cocaine Screen Urine Not Detected (Not Detect); Opiate Screen Urine Not Detected (Not Detect); Phencyclidine Screen Urine Not Detected (Not Detect)
[2020-12-12 08:20] LABS: HBsAGNum1 0.59 S/CO (0.00-0.99); HIV AB/AG Nonreactive (Nonreactive); HIV Num 1 0.07 S/CO (0.00-0.99); Hepatitis B Surface Antigen Negative (Negative)
[2020-12-12 08:38] LABS: Syphilis Screen Nonreactive (Nonreactive)
[2020-12-12 08:42] LABS: ~HepC Num1 0.08 S/CO (0.00-0.79); ~Hepatitis C Antibody Nonreactive (Nonreactive)
[2020-12-12 10:15] LABS: CT PCR NOT DETECTED (Not Detect.); NG PCR NOT DETECTED (Not Detect.)
[2020-12-12 18:22] LABS: Varicella IgG Antibody <135.00 index
== END 2020-12-11 10:28 | disposition home or self-care (01) ==
LOC: HO.LAB 10:27
PROVIDERS: Advanced Practice Midwife; PCP Internal Medicine; Visit Provider Advanced Practice Midwife
DX: O26.892 Other specified pregnancy related conditions, second trimester (principal); O99.612 Diseases of the digestive system complicating pregnancy, second trimester; O98.312 Other infections with a predominantly sexual mode of transmission complicating pregnancy, second trimester; O99.342 Other mental disorders complicating pregnancy, second trimester; R12 Heartburn; K11.7 Disturbances of salivary secretion; F32.9 Major depressive disorder, single episode, unspecified; A60.00 Herpesviral infection of urogenital system, unspecified; Z3A.23 23 weeks gestation of pregnancy
CPT/HCPCS: 80307; 81003; 84702; 85025; 86762; 86780; 86787; 86803; 86850; 86900; 86901; 87086; 87340; 87389; 87491; 87591; 99212

== ENCOUNTER → 2021-01-08 10:36 | Outpatient (BNVA) | payer OTHER, SELFPAY | PROVIDERS: PCP Internal Medicine; Visit Provider Advanced Practice Midwife | DX: Z34.93 Encounter for supervision of normal pregnancy, unspecified, third trimester (principal); Z13.31 Encounter for screening for depression; Z3A.27 27 weeks gestation of pregnancy | CPT/HCPCS: 81003; 99212 ==

== ENCOUNTER 2021-01-14 07:23 | Emergency (ER) | payer OTHER, SELFPAY ==
--- NOTE | ~2021-01-14 | US_ITS ---
EXAMINATION: US ABDOMEN COMPLETE CLINICAL INFORMATION: Right-sided abdominal pain. 28 weeks . COMPARISON: None. TECHNIQUE: Real-time imaging of the abdominal viscera. FINDINGS: PANCREAS: Normal. ABDOMINAL AORTA: The proximal, mid, and distal segments are normal in caliber. INFERIOR VENA CAVA: Visualized portions are normal. LIVER: Normal. The liver is normal in size. The liver contour is normal. Parenchymal echogenicity is normal. No focal hepatic lesion. There is no intrahepatic biliary duct dilatation seen. GALLBLADDER: There are multiple echogenic stones without wall thickening. There is no pericholecystic fluid collection or tenderness in right upper quadrant by ultrasound probe. Normal. The gallbladder is physiologically distended without evidence of stones, sludge, polyps, wall thickening or pericholecystic fluid. COMMON BILE DUCT: Normal in caliber measuring 0.3 cm in diameter. RIGHT KIDNEY: There is an echogenic area in the lower pole calyx likely a prominent papilla versus non-shadowing stone. There is mild hydronephrosis. No renal calculi or focal parenchymal lesions. The kidney measures 12.2 cm in maximum dimension. LEFT KIDNEY: Normal. No hydronephrosis. No renal calculi or focal parenchymal lesions. The kidney measures 11.8 cm in maximum dimension. SPLEEN: Normal. The spleen measures 12.4 cm in maximum dimension. FREE FLUID: None. US/US abdomen complete IMPRESSION: Cholelithiasis without wall thickening. Echogenic area in the lower pole calyx right kidney, likely prominent or sloughed papilloma versus non-shadowing stone. There is mild hydronephrosis.
[2021-01-14 07:43] VITALS: BP 150/80; PULSE 84; RESP 18; TEMP 37.4; O2SAT 100; BMI 25.2
--- NOTE | 2021-01-14 08:02 | ED.BACK ---
HPI - Back Pain/Injury General Chief Complaint: Abdominal Pain Stated Complaint: flank pain 28 weeks Time Seen by Provider: 01/14/21 07:45 Source: patient and director craft center Mode of arrival: ambulatory Limitations: no limitations History of Present Illness HPI Narrative: This is a 30-year-old female 28 weeks came in for evaluation of right flank pain. Pain started since last night which is progressively getting worse, pain is constant, described as a dull aching pain mostly in the right flank area, pain radiated down to the right side of the abdomen, pain is associated with nausea which is resolved now, pain was described as severe 10/10. Patient declined urinary frequency or dysuria. Related Data Previous Rx's Medication Instructions Recorded PNV 153-FA 400 mcg-om3 35 mg-dha 1 tab PO DAILY #30 tab 01/08/21 25 mg-epa 5 mg-fish oil chew tablet ferrous sulfate 325 mg (65 mg 325 mg PO DAILY #30 tab 01/08/21 iron) tablet Allergies Allergy/AdvReac Type Severity Reaction Status Date / Time No Known Allergies Allergy Verified 01/08/21 10:49 Review of Systems Review of Systems: All other systems are reviewed and are negative Constitutional: Reports as per HPI and Reports no additional constitutional complaints Eyes: Reports as per HPI and Reports no additional eye complaints Reports system reviewed and no additional complaints, except as documented Cardiovascular: Reports as per HPI and Reports no additional cardiovascular complaints Respiratory: Reports as per HPI and Reports no additional respiratory complaints Gastrointestinal: Reports as per HPI and Reports no additional gastrointestinal complaints Genitourinary: Reports no additional female genitourinary complaints Musculoskeletal: Reports no additional musculoskeletal complaints Skin/Breast: Reports system reviewed and no additional complaints, except as docu Psychiatric: Reports no additional psychiatric complaints Endocrine: Reports no additional endocrine complaints Hematologic/Lymphatic: Reports no additional hematologic/lymphatic complaints Allergic/Immunologic: Reports no additional allergic/immunologic complaints Reports system reviewed and no additional complaints, except as documented and Reports Abnormal speech present PMFSH Past Medical History Medical History Papanicolaou smear for cervical cancer screening Supervision of normal Surgical History H/O abdominoplasty Family History Family History Father Hx of malignant neoplasm of prostate Hx of diabetes mellitus Mother Hx of primary hypertension Hx of seizure disorder Maternal Grandmother Hx of primary hypertension Maternal Grandfather Hx of kidney disease Social History Social History Household Members: Spouse and Family Alcohol intake: never Smoking Status: Never smoker Use of substances other than those prescribed or required for medical reasons: No Substance Use Type: Marijuana Advance Directives: Yes Advance Directives Information Provided: No Advance Directives on File: No service: No Current occupational status: employed and unemployed 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 Blood pressure elevated. Heart rate normal. Respiration rate normal. Temperature normal. Oxygen saturation normal. Appearance: Alert. Oriented X3. No acute distress. Head: Normal external exam. Normocephalic. Atraumatic. No Roy signs noted. No raccoon eyes noted Eyes: PERRLA. EOMI. Conjunctiva and sclera normal. Eyelids normal. ENT: TM's Normal. Pharynx normal. Uvula midline. Moist mucous membranes. No trismus noted. No drooling noted. No muffled voice noted. Neck: Normal inspection. Neck supple. FROM. No adenopathy. Thyroid Normal. No meningeal signs. No neck mass noted. CVS: Normal heart rate and rhythm. Heart sound normal. No murmurs noted. Pulses normal throughout. Respiratory: No respiratory distress. Painless inspiration. Breath sounds normal. No wheezes/rales/rhonchi noted. Chest nontender. No accessory muscle usage noted or decreased air movement noted. Abdomen: Soft, mild tenderness to the right side of the abdomen, no rebound, no guarding.. Bowel sounds normal in all 4 quadrants. No distention noted. No organomegaly noted. No visible injury noted. Back: Right CVA tenderness. Full range of motion noted. Skin: Skin warm and dry. Normal skin color. Normal skin turgor. No rashes/lesions/lacerations noted. Extremities: No lower extremity edema. Extremities exhibit normal range of motion. Extremities nontender. Neuro: Oriented X 3. No motor deficit. No sensory deficit. Reflexes normal. Course Course Course Narrative: Assessment and plan. 30-year-old female 28 weeks with no a significant history. Presented with right-sided back/abdominal pain. Patient earlier in her at 15 weeks had similar presentation was diagnosed with pyelonephritis, also had ultrasound done which showed cholelithiasis without acute cholecystitis. Patient today with an obvious abdominal pain patient required multiple doses of morphine IV to control her pain and pain is not completely controlled yet, had a leukocytosis, mild abdominal tenderness but no rebound, no guarding. Dr. Carlos lin from radio television technical director service was consulted and has seen and evaluated the patient at the bedside history advised to transfer the patient to [facility] where she can get maternal/ monitoring. Patient is hypertensive which is likely due to the pain but her LFTs within normal, no protein in the urine, no edema in the lower extremities. The case was discussed with [facility] OB service patient will be transferred to Labor and delivery for further monitoring. Accepted by Dr. Mtz. MDM - Back Pain/Injury Lab Data Attestation: I reviewed the patient's lab results. Result diagrams: 01/14/21 08:05 01/14/21 08:05 Labs: Lab Results 01/14/21 01/14/21 01/14/21 Range/Units 08:05 08:05 08:05 WBC 11.9 H (4.8-10.8) X10*3/uL RBC 3.48 L (4.20-5.50) X10*6/uL Hgb 10.6 L (12.0-16.0) g/dl Hct 32.3 L (37-47) % MCV 92.8 (80-98) fL MCH 30.5 (27.0-33.0) pg MCHC 32.8 (31.0-35.0) g/dl RDW 12.3 (11.0-16.0) % Plt Count 191 (160-400) X10*3/uL MPV 9.6 (9.4-12.3) fL Immature Gran % (Auto) 0.3 (0.0-0.4) % Neut % (Auto) 78.8 H (45-73) % Lymph % (Auto) 13.9 L (20-40) % [place] % (Auto) 6.5 (2-11) % Eos % (Auto) 0.2 (0-4) % Baso % (Auto) 0.3 (0-2) % Lymph # (Auto) 1.7 (1.2-4.9) X10*3/uL [place] # (Auto) 0.8 (0.1-1.2) X10*3/uL Eos # (Auto) 0.0 (0.0-0.4) X10*3/uL Baso # (Auto) 0.0 (0.0-0.2) X10*3/uL Abs Immat Gran (auto) 0.04 H (0.00-0.03) X10*3/uL Absolute Neuts (auto) 9.4 H (2.0-8.3) X10*3/uL Absolute Nucleated RBC 0.000 (0.0-0.012) X10*3/uL Nucleated RBC % (auto) 0.0 (0.0-0.2) /100WBC Sodium 137 (135-145) mmol/L Potassium 3.7 (3.3-5.1) mmol/L Chloride 106 (96-108) mmol/L Carbon Dioxide 22 (22-29) mmol/L Anion Gap 13 (12-20) BUN 12 (9-16) mg/dL Creatinine 0.65 (0.5-1.4) mg/dL Estim Creat Clear Calc 119.5 Estimated GFR > 60 Random Glucose 79 (60-115) mg/dL Lactic Acid 0.6 (0.5-2.0) mmol/L Calcium 8.9 (8.4-10.2) mg/dL Total Bilirubin 0.6 (0.0-1.0) mg/dL Direct Bilirubin < 0.2 (0.0-0.5) mg/dL AST 15 (5-31) U/L ALT 6 (0-31) U/L Alkaline Phosphatase 67 D (39-117) U/L Total Protein 6.4 L (6.5-8.0) g/dL Albumin 3.5 (3.5-5.0) g/dL Lipase 19 (8-78) U/L Urine Color Urine Appearance Urine pH (5.0-8.0) Ur Specific [place] (1.005-1.025) Urine Protein (NEG-TRACE) MG/DL Urine Glucose (UA) (NEG) MG/DL Urine Ketones (NEG) MG/DL Urine Blood (NEG) Urine Nitrite (NEG) Ur Leukocyte Esterase (NEG) Urine RBC (0) /HPF Urine WBC (0-4) /HPF Ur Squamous Epith Cells /LPF Urine Bacteria /LPF Urine Test (NEGATIVE) COVID-19 (YANIV) (Negative) COVID-19 Clin Com 01/14/21 01/14/21 01/14/21 Range/Units 08:05 08:05 08:13 WBC (4.8-10.8) X10*3/uL RBC (4.20-5.50) X10*6/uL Hgb (12.0-16.0) g/dl Hct (37-47) % MCV (80-98) fL MCH (27.0-33.0) pg MCHC (31.0-35.0) g/dl RDW (11.0-16.0) % Plt Count (160-400) X10*3/uL MPV (9.4-12.3) fL Immature Gran % (Auto) (0.0-0.4) % Neut % (Auto) (45-73) % Lymph % (Auto) (20-40) % [place] % (Auto) (2-11) % Eos % (Auto) (0-4) % Baso % (Auto) (0-2) % Lymph # (Auto) (1.2-4.9) X10*3/uL [place] # (Auto) (0.1-1.2) X10*3/uL Eos # (Auto) (0.0-0.4) X10*3/uL Baso # (Auto) (0.0-0.2) X10*3/uL Abs Immat Gran (auto) (0.00-0.03) X10*3/uL Absolute Neuts (auto) (2.0-8.3) X10*3/uL Absolute Nucleated RBC (0.0-0.012) X10*3/uL Nucleated RBC % (auto) (0.0-0.2) /100WBC Sodium (135-145) mmol/L Potassium (3.3-5.1) mmol/L Chloride (96-108) mmol/L Carbon Dioxide (22-29) mmol/L Anion Gap (12-20) BUN (9-16) mg/dL Creatinine (0.5-1.4) mg/dL Estim Creat Clear Calc Estimated GFR Random Glucose (60-115) mg/dL Lactic Acid (0.5-2.0) mmol/L Calcium (8.4-10.2) mg/dL Total Bilirubin (0.0-1.0) mg/dL Direct Bilirubin (0.0-0.5) mg/dL AST (5-31) U/L ALT (0-31) U/L Alkaline Phosphatase (39-117) U/L Total Protein (6.5-8.0) g/dL Albumin (3.5-5.0) g/dL Lipase (8-78) U/L Urine Color YELLOW Urine Appearance CLOUDY Urine pH 6.5 (5.0-8.0) Ur Specific [place] >= 1.030 H (1.005-1.025) Urine Protein NEG (NEG-TRACE) MG/DL Urine Glucose (UA) NEG (NEG) MG/DL Urine Ketones NEG (NEG) MG/DL Urine Blood 1+ H (NEG) Urine Nitrite NEG (NEG) Ur Leukocyte Esterase NEG (NEG) Urine RBC 10-14 H (0) /HPF Urine WBC 0 (0-4) /HPF Ur Squamous Epith Cells 3+ /LPF Urine Bacteria TRACE /LPF Urine Test POSITIVE H (NEGATIVE) COVID-19 (YANIV) Negative (Negative) COVID-19 Clin Com See Note Imaging Data Abdominal ultrasound: Radiologist's impression: ABDOMINAL AORTA: The proximal, mid, and distal segments are normal in caliber. INFERIOR VENA CAVA: Visualized portions are normal. LIVER: Normal. The liver is normal in size. The liver contour is normal. Parenchymal echogenicity is normal. No focal hepatic lesion. There is no intrahepatic biliary duct dilatation seen. GALLBLADDER: There are multiple echogenic stones without wall thickening. There is no pericholecystic fluid collection or tenderness in right upper quadrant by ultrasound probe. Normal. The gallbladder is physiologically distended without evidence of stones, sludge, polyps, wall thickening or pericholecystic fluid. COMMON BILE DUCT: Normal in caliber measuring 0.3 cm in diameter. RIGHT KIDNEY: There is an echogenic area in the lower pole calyx likely a prominent papilla versus non-shadowing stone. There is mild hydronephrosis. No renal calculi or focal parenchymal lesions. The kidney measures 12.2 cm in maximum dimension. LEFT KIDNEY: Normal. No hydronephrosis. No renal calculi or focal parenchymal lesions. The kidney measures 11.8 cm in maximum dimension. SPLEEN: Normal. The spleen measures 12.4 cm in maximum dimension. FREE FLUID: None. US/US abdomen complete IMPRESSION: Cholelithiasis without wall thickening. Echogenic area in the lower pole calyx right kidney, likely prominent or sloughed papilloma versus non-shadowing stone. There is mild hydronephrosis. Discharge Plan Discharge Clinical Impression: , Abdominal pain affecting Patient Disposition: [facility] Transfer Details: Labor and delivery at [facility]. Prescriptions: No Action Gummies 400 mcg-35 mg- 25 mg-5 mg tablet,chewable 1 tab PO DAILY Qty: 30 RF: 4 ferrous sulfate 325 mg (65 mg iron) tablet 325 mg PO DAILY Qty: 30 RF: 5
[2021-01-14 08:12] LABS: MANUAL DIFF FLAG NO
[2021-01-14 08:13] LABS: Basophils Percent Auto 0.3 % (0-2); Eosinophils Percent Auto 0.2 % (0-4); Hematocrit 32.3 % (37-47); Hemoglobin 10.6 g/dl (12.0-16.0); Imm Gran Abs Auto 0.04 X10*3/uL (0.00-0.03); Imm Gran Pct Auto 0.3 % (0.0-0.4); Lymphocytes Absolute Auto 1.7 X10*3/uL (1.2-4.9); Lymphocytes Percent Auto 13.9 % (20-40); Mean Corpuscular HGB Conc 32.8 g/dl (31.0-35.0); Mean Corpuscular Hemoglobin 30.5 pg (27.0-33.0); Mean Corpuscular Volume 92.8 fL (80-98); Mean Platelet Volume 9.6 fL (9.4-12.3); Monocytes Absolute Auto 0.8 X10*3/uL (0.1-1.2); Monocytes Percent Auto 6.5 % (2-11); Neutrophils Absolute Auto 9.4 X10*3/uL (2.0-8.3); Neutrophils Percent Auto 78.8 % (45-73); Platelet Count 191 X10*3/uL (160-400); Red Blood Count 3.48 X10*6/uL (4.20-5.50); Red Cell Distribution Width 12.3 % (11.0-16.0); White Blood Count 11.9 X10*3/uL (4.8-10.8)
[2021-01-14] MEDS: 0.9 % Sodium Chloride 1,000 ML 999 ML IVCONT ×2 (08:13→09:17)
[2021-01-14] MEDS: Morphine Sulfate 2 MG/ML CARTRIDGE 1 MG IVPUSH ×2 (08:13→11:33)
[2021-01-14 08:21] LABS: Glucose Urine UA NEG (NEG); Leukocyte Esterase Urine NEG (NEG); Nitrite Urine NEG (NEG); PH 6.5 (5.0-8.0); Specific Gravity - Urine >= 1.030 (1.005-1.025); Urine Blood 1+ (NEG); Urine Ketones NEG (NEG); Urine Protein NEG (NEG-TRACE)
[2021-01-14 08:23] LABS: UPreg QC Valid YES; Urine Pregnancy POSITIVE (NEGATIVE)
[2021-01-14 08:25] LABS: Appearance Urine CLOUDY; Color Urine YELLOW
[2021-01-14 08:33] LABS: Bacteria Urine TRACE /LPF; Squamous Epithelial Cell Urine 3+ /LPF; WBC Urine 0 /HPF (0-4)
--- NOTE | 2021-01-14 08:34 | PC.NURSE ---
pt seen by provider, appears uncomfortable. iv established, blood labs obtained and sent, covid swab and urine sent. medicated per emar. taken to us via wheelchair. jelena.
[2021-01-14 08:38] LABS: COVID-19 Test Negative (Negative); IDNOW Serial# 9DD0AD1C
[2021-01-14 08:46] LABS: Lactic Acid 0.6 mmol/L (0.5-2.0)
[2021-01-14 08:49] LABS: Alanine Aminotransferase 6 U/L (0-31); Albumin Level 3.5 g/dL (3.5-5.0); Alkaline Phosphatase 67 U/L (39-117); Anion Gap 13 (12-20); Aspartate Amino Transferase 15 U/L (5-31); Bilirubin Direct < 0.2 mg/dL (0.0-0.5); Bilirubin Total 0.6 mg/dL (0.0-1.0); Blood Urea Nitrogen 12 mg/dL (9-16); Calcium 8.9 mg/dL (8.4-10.2); Carbon Dioxide 22 mmol/L (22-29); Chloride 106 mmol/L (96-108); Creatinine Clr Calc Pharmacy 119.5; Estimated Glomerular Filt Rate > 60; Glucose Random 79 mg/dL (60-115); Lipase 19 U/L (8-78); Potassium 3.7 mmol/L (3.3-5.1); Sodium 137 mmol/L (135-145); Total Protein 6.4 g/dL (6.5-8.0)
[2021-01-14] MEDS: Morphine Sulfate 2 MG/ML CARTRIDGE IVPUSH (09:16)
--- NOTE | 2021-01-14 09:24 | PC.NURSE ---
@4625 DR RAHMAN REQUESTS CALL OUT TO [facility] PT TX LINE TO SPEAK WITH INSURANCE ADMINISTRATIVE ASSISTANT MJ ANSWERS, ASKS FOR PT INFO, CALL BACK NUMBER AND TO SPEAK WITH DR LACEY RAHMAN TAKES OVER CALL RIGHT AWAY
--- NOTE | 2021-01-14 09:25 | PC.NURSE ---
Pt yelling out in pain continuously. She had recd 1mg of morphine from previous RN with minimal relief. She recd 2 more mg of morphine from this RN and she reports feeling better at this time no longer yelling out in pain. Per plan is for tx to [facility]. Pt made aware with use of range aid.
--- NOTE | 2021-01-14 09:31 | PC.NURSE ---
at bedside. heart tones 155 by doppler.
[2021-01-14 09:32] VITALS: BP 112/72; PULSE 101; RESP 18; TEMP 36.8; O2SAT 100
--- NOTE | 2021-01-14 09:35 | PM.OBCN ---
OB Consult Note - [facility] Data Service Date: 01/14/21 Primary Care Provider: Sonia Polanco MD Narrative I was consulted at 9:09 am regarding Mimi Walton is a 30 year old female presented to the emergency room at 28 weeks of gestation complaining of abdominal pain crampy in nature with tightening since 12 midnight , no leakage of fluid or bleeding associated with right upper quadrant pain radiating to the right flank , good movement. OB PMFSH Past Medical History Medical History Papanicolaou smear for cervical cancer screening Supervision of normal Family History Family History Father Hx of malignant neoplasm of prostate Hx of diabetes mellitus Mother Hx of primary hypertension Hx of seizure disorder Maternal Grandmother Hx of primary hypertension Maternal Grandfather Hx of kidney disease Surgical History Surgical History H/O abdominoplasty Social History Social History Household Members: Spouse and Family Alcohol intake: never Smoking Status: Never smoker Use of substances other than those prescribed or required for medical reasons: No Substance Use Type: Marijuana Advance Directives: Yes Advance Directives Information Provided: No Advance Directives on File: No service: No Current occupational status: employed and unemployed 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 Current occupational exposures/hazards: No Sexual orientation: Straight/Heterosexual Meds Allergies Allergy/AdvReac Type Severity Reaction Status Date / Time No Known Allergies Allergy Verified 01/08/21 10:49 Active Medications: Current Medications Generic Name Dose Route Start Last Admin Trade Name Freq PRN Reason Stop Dose Admin Sodium Chloride 1,000 mls @ 999 mls/hr 01/14/21 09:00 01/14/21 09:17 Ns IVCONT 01/14/21 10:00 999 mls/hr .Q1H1M ADY Administration OB Flowsheet OB Flowsheet & Tools OB Flowsheet Initial Weight: Not Recorded Date <del>?</del> EGA Weight Gest Week Fundal Ht Present FHR move Efface % Edema BP PrePreg We Weight GTT <del>?</del> Glucose LV Protein Blood Type 10/08/20 <del>?</del> 14w 5d <del>?</del> 10/16/20 <del>?</del> 15w 6d 133 lb 16 140 118/60 133 lb <del>?</del> 11/13/20 <del>?</del> 19w 6d 140 lb 20 140 absent 110/60 140 lb <del>?</del> 12/11/20 <del>?</del> 23w 6d 145 lb 8 oz 23 150 active 104/60 145 lb 8 oz <del>?</del> 01/08/21 <del>?</del> 27w 6d 152 lb 6 oz 28 150 active 116/70 152 lb 6 oz <del>?</del> 01/14/21 <del>?</del> 28w 5d 156 lb 150/80 112/72 156 lb <del>?</del> GRAEME Calculator Estimated Delivery Date Method Current WG Current Estimate 04/03/21 Ultrasound #1 28w 5d Other Estimates 04/06/21 LMP (Certain) 28w 2d 03/28/21 Ultrasound #2 29w 4d Plans GRAEME: 04/03/21 Blood Type: -Ptyalsim of (excessive spitting) and nausea - limited vomiting, able to eat. Pt states she has not liked any of the antiemetics we have sent. -HX of Genital Herpes - Valacyclovir at 36 wks -depression: ref [facility], appt 12/17. EPDS at 28wk=0 -hx of abdominoplasty -h/o UTI/kidney infection (right hydronephrosis) vs Cholelithiasis in ? -Varicella low titer: vaccinate pp FAS: wnl Notes Visit Date: 01/14/21 No visit notes to display Visit Date: 01/08/21 27.6 wk MARIA INES. Feeling well. Taking PNV - she has difficulties swallowing large pills, prefers gummies. Recommended gummies and additional iron supplementation, Rx sent in today. Good FM, no LOF, VB or abd pain. EPDS = 0 She is asking about a sonogram. I advised the patient to schedule ahead of time, there is no medical indication. She reports her spitting has decreased significantly. C/o increased kicking when lying down. Reassured the patient that kicking is normal. Gtt ordered. Discussed: PTL - LOF, VB, abd pain, regular contractions. kick counts reviewed and when to call if any decreased movement. Advised to have something to eat and drink. 5 times an hour. PEC - headaches: not resolved with 2 regular strength Tylenol doses, visual disturbances warnings and when to call for further evaluation. Maintain Covid-19 precautions. Hardeep TarangodeclanljEl Visit Date: 12/11/20 23.6 wk MARIA INES. Feeling well. Taking PNV. Good FM, no LOF, VB or abd pain. She reports better eating and staying hydrated. She has an appointment booked with [facility] 12/17. Plan gtt for next visit in 4 weeks. Patient is agreeable. Advised healthy eating, decrease sugar intake prior to visit. Labs not done. Patient agrees to do labs today. Follow up in 4 weeks for routine OB Discussed: PTL - LOF, VB, abd pain, regular contractions PEC - headaches: not resolved with 2 regular strength Tylenol doses, visual disturbances warnings and when to call for further evaluation Maintain Covid-19 precautions Hardeep Nguyen Visit Date: 11/13/20 Pt here for MARIA INES at 19.6 wks. Denies cramping or bleeding. Reports FM. 1) Pt has significant complaint of nausea and spitting. Pt tried a few rx'd antiemetics and did not like the side effects. She is admittedly miserable. She states she has tried everything . Advised trying diphenhydramine at night. RX sent. 2) [facility] referral for pt c/o significant depression 3) h/o right sided pain and trip to 2 different EDs in same day - cholelithiasis vs UTI/right hydronephrosis - given antibiotics. Feels much better now. States she is drinking lots of water. 4) Pt concerned about HSV and passing it to . Discussed valacyclovir at 36 wks to reduce likelihood of transmission. 5) FAS wnl 6) No PN labs. Pt states she will try to do in the coming week. Danger s/s, when to call. MARIA INES in 4 wks. Teresa Pop Albert Visit Date: 10/16/20 Patient here for new OB visit she thought she was getting an ultrasound today could she really wants to know if she is having a boy or a girl. She was in the emergency room of 2 hospitals on the that where she was evaluated for right sided pain she went to [address] did a bedside ultrasound of her baby and said everything was fine and then she said the pain was worse so she went to [facility] ER and she had an abdominal ultrasound that showed possible cholelithiasis but then she had an MRI that showed no stones the only finding consistent was some right hydronephrosis they diagnosed her with a UTI and gave her antibiotics they also gave her Zofran and possibly other medications but she says she did not like how it made her feel so she is not any of that she has ptyalism, and heartburn and is spitting constantly she said nothing helps that. She says they told her to take the antibiotic once a day at but she feels much better I checked the records and the recommendation is for twice a day antibiotic so I corrected her on that I urged her to drink lots of water and try tums for the heartburn. we also discussed mint, mary and lemon- all of which used ot help but dont seem to anymore. she feelss c/w 15-16w gest, though landmarks are challenged as she had abdominoplast last august in the DR. 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 LMP 06/30/2020, GRAEME 04/06/21, U/s done on 08/13 dating 6w5d, and consistent with LMP , PT doing well currently lives with FOb and child. 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 Denies HX of HTN and DM, Denies use of ETOH and Tobacco, but has recently used marijuana 1 day ago to help with nausea. HX of Genital herpes. Review warning signs/ when to call and seek care at ED. PT Next steps would be to have PN labs completed, and OBPE, Informed drug urine screen to be completed. pt verbs understanding Kate Pederson Past Pregnancies Del. Date GA/Weeks Outcome Route Wt Inf Gender Labor Dianna Anesthesia Location Provider Complicate 06/02/13 42 live - full term vaginal delivery 9 lb Male 5 hrs epidural [place] none History 2 Elective abortions 0 Para 1 Spontaneous abortions 0 Hx # Term Pregnancies 1 Ectopic pregnancies 0 Hx # Pregnancies 0 Multiple births 0 OB Consult Results Labs CBC & Chem 7: 01/14/21 08:05 01/14/21 08:05 Labs: Short CBC 01/14/21 Range/Units 08:05 WBC 11.9 H (4.8-10.8) X10*3/uL Hgb 10.6 L (12.0-16.0) g/dl Hct 32.3 L (37-47) % Plt Count 191 (160-400) X10*3/uL BMP 01/14/21 08:05 Sodium 137 Potassium 3.7 Chloride 106 Carbon Dioxide 22 BUN 12 Creatinine 0.65 Calcium 8.9 Liver Function 01/14/21 Range/Units 08:05 Total Bilirubin 0.6 (0.0-1.0) mg/dL Direct Bilirubin < 0.2 (0.0-0.5) mg/dL AST 15 (5-31) U/L ALT 6 (0-31) U/L Alkaline Phosphatase 67 D (39-117) U/L Albumin 3.5 (3.5-5.0) g/dL Urine 01/14/21 01/14/21 Range/Units 08:05 08:05 Urine Color YELLOW Urine Appearance CLOUDY Urine pH 6.5 (5.0-8.0) Ur Specific [place] >= 1.030 H (1.005-1.025) Urine Protein NEG (NEG-TRACE) MG/DL Urine Glucose (UA) NEG (NEG) MG/DL Urine Test POSITIVE H (NEGATIVE) OB - CN: A/P Assessment and Plan (1) Supervision of normal in third trimester: Problem details: With abdominal pain, flank pain right upper quadrant pain and hypertension Status: Acute Assessment and Plan: heart rate checked was 155. Since there is no maternity unit with no availability of OB nurses or heart rate / toco monitoring, recommended to Dr. Duffy to transfer the patent stat [place] for further management. Discussed with Dr. Duffy the differential diagnosis including but not limited to labor, possible abruption, cholelithiasis, pyelonephritis and others
--- NOTE | 2021-01-14 09:36 | PC.NURSE ---
@9238 CALL RECEIVED BY MAURI FROM [facility] PT PLACEMENT, ASKS FOR DR RAHMAN, DR RAHMAN TAKES OVER CALL RIGHT AWAY
--- NOTE | 2021-01-14 11:05 | PC.NURSE ---
@1050AM DEWAYNE FROM [facility] PT TX LINE CALLS,ASKS TO SPEAK WITH LACEY, DR RAHMAN TAKES CALL OVER RIGHT AWAY 1105AM PER DR RAHMAN ACCEPTED BY [facility] FOR TX AND THAT PT TX LINE WILL CALL US WITH TX INFO AND ACCEPTING SOON
--- NOTE | 2021-01-14 11:36 | PC.NURSE ---
Awaiging bed assignment from [facility]. Pt continues to have pain. 1mg MS given.
--- NOTE | 2021-01-14 12:07 | PC.NURSE ---
@1207PM DR RAHMAN ASKS FOR CALL TO BE PLACED TO [facility] PT PLACEMENT TO FIND OUT BED ASSIGNMENT MJ ANSWERS, SAYS THERE IS NO ASSIGNMENT YET BUT WILL CALL US SOON THEY HAVE ONE PER DR RAHMAN ACCEPTING MD IS DR NGUYEN
--- NOTE | 2021-01-14 12:19 | PC.NURSE ---
@1218PM CALL RECEIVED BY MAURI FROM [facility] PT TX LINE WITH ROOM ASSIGNEMENT VALERIR TAE Sanders7 RN TO RN SHOULD BE CALLED TO [phone]
--- NOTE | 2021-01-14 12:56 | PC.NURSE ---
Report given to [facility] labor and warehouse delivery driver. Ambulance booked. Awaiting arrival of ambulance at this time. Pt aware of transfer status.
== END 2021-01-14 19:00 | disposition short-term general hospital (02) ==
PROVIDERS: Emergency Provider Emergency Medicine; PCP Internal Medicine
DX: O26.893 Other specified pregnancy related conditions, third trimester (principal); R10.9 Unspecified abdominal pain; N13.30 Unspecified hydronephrosis; D72.829 Elevated white blood cell count, unspecified; O26.613 Liver and biliary tract disorders in pregnancy, third trimester; K80.20 Calculus of gallbladder without cholecystitis without obstruction; O16.3 Unspecified maternal hypertension, third trimester; Z3A.28 28 weeks gestation of pregnancy; Z20.822 Contact with and (suspected) exposure to COVID-19
CPT/HCPCS: 36415; 76700; 80048; 80076; 81001; 81025; 83605; 83690; 85025; 87040; 87635; 96361; 96374; 96376; 99285; J2270

== ENCOUNTER → 2021-02-02 09:23 | Outpatient (BNVA) | payer OTHER, SELFPAY | PROVIDERS: PCP Internal Medicine; Visit Provider Advanced Practice Midwife | DX: O26.839 Pregnancy related renal disease, unspecified trimester (principal); N20.0 Calculus of kidney | CPT/HCPCS: 99212 ==

== ENCOUNTER 2021-03-09 10:11 | Outpatient (REF) | payer OTHER, SELFPAY ==
[2021-03-09 17:21] LABS: CT PCR NOT DETECTED (Not Detect.); NG PCR NOT DETECTED (Not Detect.)
== END 2021-03-09 10:12 | disposition home or self-care (01) ==
LOC: HO.LAB 10:11
PROVIDERS: PCP Internal Medicine; Visit Provider Advanced Practice Midwife
DX: O36.5930 Maternal care for other known or suspected poor fetal growth, third trimester, not applicable or unspecified (principal); Z3A.36 36 weeks gestation of pregnancy; Z20.2 Contact with and (suspected) exposure to infections with a predominantly sexual mode of transmission
CPT/HCPCS: 81003; 87081; 87491; 87591; 99212

== ENCOUNTER 2021-03-13 09:58 | Outpatient (REF) | payer OTHER, SELFPAY ==
--- NOTE | ~2021-03-13 | US_ITS ---
EXAMINATION: OBSTETRICAL ULTRASOUND, Follow up HISTORY: 30-year-old at the 37.0 weeks of gestation Size date discrepancy COMPARISON: 01/14/2021 TECHNIQUE: Real time transabdominal imaging with color and M-mode Doppler. PRESENTATION: Vertex PLACENTA LOCATION: Posterior without previa AMNIOTIC FLUID: ALEKSANDRA 10.2 cm MEASUREMENTS: 1. Biparietal Diameter: 8.9 cm; 36.0 wks 2. Head Circumference: 33.0 cm; 37.4 wks 3. Abdominal Circumference: 33.2 cm; 37.1 wks 4. Femur Length: 6.9 cm; 35 4 wks 5. Heart Rate: 140 beats per minute WEIGHT: EFW: 2991 grams (6 lbs 9 oz) -- 46 %. BIOPHYSICAL PROFILE: Motion: 2 Tone: 2 Breathin Amniotic Fluid: 2 Total score: 8/8 GESTATIONAL AGE: 1. Established GA: 37.0 wks 2. GA from A: 36.4 wks ESTIMATED DATE OF DELIVERY: 1. Established GRAEME: 04/03/2021 2. GRAEME from [facility]: 04/06/2021 US/US OB follow up IMPRESSION: 1. A single active fetus is in vertex presentation 2. Size equals dates 3. Reassuring biophysical profile with normal amniotic fluid index Thank you very much for this referral. This note was generated with a voice recognition program. Please excuse any errors which may have been overlooked during my review of this note. Sometimes these errors may affect the content or meaning of a given sentence.
== END 2021-03-13 09:59 | disposition home or self-care (01) ==
LOC: HO.US 09:58
PROVIDERS: Visit Provider Advanced Practice Midwife
DX: O36.5990 Maternal care for other known or suspected poor fetal growth, unspecified trimester, not applicable or unspecified (principal); O26.839 Pregnancy related renal disease, unspecified trimester; N20.0 Calculus of kidney; Z3A.37 37 weeks gestation of pregnancy
CPT/HCPCS: 76816

== ENCOUNTER → 2021-03-20 09:21 | Outpatient (BNVA) | payer OTHER, SELFPAY | PROVIDERS: PCP Internal Medicine; Visit Provider Obstetrics & Gynecology | DX: Z34.93 Encounter for supervision of normal pregnancy, unspecified, third trimester (principal); Z3A.38 38 weeks gestation of pregnancy | CPT/HCPCS: 99212 ==

== ENCOUNTER → 2021-03-27 12:00 | Outpatient (BNVA) | payer OTHER, SELFPAY | PROVIDERS: PCP Internal Medicine; Visit Provider Obstetrics & Gynecology | DX: Z34.93 Encounter for supervision of normal pregnancy, unspecified, third trimester (principal); Z3A.39 39 weeks gestation of pregnancy | CPT/HCPCS: 99212 ==

== ENCOUNTER → 2021-04-02 11:22 | Outpatient (BNVA) | payer OTHER, SELFPAY | PROVIDERS: PCP Internal Medicine; Visit Provider Advanced Practice Midwife | DX: O26.833 Pregnancy related renal disease, third trimester (principal); N20.0 Calculus of kidney; Z3A.39 39 weeks gestation of pregnancy | CPT/HCPCS: 81003; 99212 ==

== ENCOUNTER → 2021-04-22 14:53 | Outpatient (BNVA) | payer OTHER, SELFPAY | PROVIDERS: Visit Provider Advanced Practice Midwife | DX: Z39.2 Encounter for routine postpartum follow-up (principal); Z87.59 Personal history of other complications of pregnancy, childbirth and the puerperium | CPT/HCPCS: 99212 ==

== ENCOUNTER → 2021-04-29 13:42 | Outpatient (BNVA) | payer OTHER, SELFPAY | PROVIDERS: Visit Provider Advanced Practice Midwife | DX: Z30.42 Encounter for surveillance of injectable contraceptive (principal) | CPT/HCPCS: 96372 ==

== ENCOUNTER → 2021-08-14 15:48 | Outpatient (BNVA) | payer OTHER, SELFPAY | PROVIDERS: PCP Internal Medicine; Visit Provider Advanced Practice Midwife ==